=== PATIENT | male | born 1960 | race Caucasian/White ===

== ENCOUNTER 2017-01-02 10:43 | Inpatient (IN) | payer BC ==
--- NOTE | 2017-01-02 11:28 | ED ---
Skin/Abscess/FB HPI - General Source: patient, RN notes reviewed Mode of arrival: ambulatory Limitations: no limitations <David Moreno - Last Filed: 01/02/17 13:32> <Fabien Camara - Last Filed: 01/03/17 11:02> - General Chief complaint: Skin/Abscess/Foreign Body Stated complaint: RT BIG TOE SORE Time Seen by Provider: 01/02/17 11:02 - History of Present Illness Initial comments: 56-year-old male presents emergency Department chief complaint right foot infection, sores. Patient states that 2 days ago he noticed swelling in a blister to his right foot first toe. Patient states he now is a large blistered area on the lateral portion of his right foot and the distal aspect. Patient states that one year ago he had osteomyelitis from a similar sore. Patient states he is diabetic and has no sensation of his toes secondary to neuropathy. Patient states he has been working more and has been wearing his work boots more. Patient states he are not new or old work boots. He states they have been seen once. Patient trauma to his foot. (David Moreno) - Related Data Home Medications Medication Instructions Recorded Confirmed Lisinopril [Zestril] 10 mg PO DAILY 03/17/14 01/02/17 Levothyroxine Sodium [Synthroid] 25 mcg PO DAILY 12/05/15 01/02/17 sitaGLIPtin PHOS/metFORMIN HCL 1 tab PO AC-BRKFST 12/05/15 01/02/17 [Janumet 50-500 mg Tablet] Multivitamins, Thera [Multivitamin 1 tab PO DAILY 01/10/16 01/02/17 (formulary)] Insulin Glargine,Hum.rec.anlog 40 unit SQ HS 01/02/17 01/02/17 [Basaglar Kwikpen U-100] Allergies Allergy/AdvReac Type Severity Reaction Status Date / Time ketorolac tromethamine Allergy Severe Swelling Verified 01/02/17 11:21 [From Toradol] Penicillins Allergy Severe Anaphylaxis Verified 01/02/17 11:21 Review of Systems ROS Other: All systems not noted in ROS Statement are negative. <David Moreno - Last Filed: 01/02/17 13:32> ROS Other: All systems not noted in ROS Statement are negative. <Fabien Camara Barbara - Last Filed: 01/03/17 11:02> ROS Statement: Those systems with pertinent positive or pertinent negative responses have been documented in the HPI. Past Medical History Past Medical History: Diabetes Mellitus, Eye Disorder, Hypertension, Myocardial Infarction ([place]), Thyroid Disorder Additional Past Medical History / Comment(s): IDDM type 2, diabetic neuropathy bilateral feet, diverticulosis, obstructive sleep apnea has CPAP but does not use it, hypothyroid, PVD, astigmatism bilaterally, R eye retinal hemorrhage, bakc pain since a fall.. 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 Past Psychological History: No Psychological Hx Reported Smoking Status: Current every day smoker - Past Family History Mother Family Medical History: Diabetes Mellitus, Hypertension Additional Family Medical History / Comment(s): Mother in her 70's Father Family Medical History: Hypertension, Renal Disease Additional Family Medical History / Comment(s): Father at the age of 71 yrs from renal failure. <David Moreno M - Last Filed: 01/02/17 13:32> General Exam General appearance: alert, in no apparent distress Head exam: Present: atraumatic, normocephalic, normal inspection Respiratory exam: Present: normal lung sounds bilaterally. Absent: respiratory distress, wheezes, rales, rhonchi, stridor Cardiovascular Exam: Present: regular rate, normal rhythm, normal heart sounds. Absent: systolic murmur, diastolic murmur, rubs, gallop, clicks Extremities exam: Present: other (right foot first digit there is a large area of blistering slight black to yellowish discoloration on with large purulent type blister to the right lateral foot just proximal to the fifth digit) Neurological exam: Present: alert, oriented X3, CN II-XII intact, reflexes normal. Absent: motor sensory deficit Skin exam: Present: warm, dry, intact, normal color. Absent: rash <David Moreno M - Last Filed: 01/02/17 13:32> Medical Decision Making - Lab Data Result diagrams: 01/02/17 11:20 01/02/17 11:20 <David Moreno - Last Filed: 01/02/17 13:32> - Lab Data Result diagrams: 01/02/17 11:20 01/03/17 06:30 <Fabien Camara - Last Filed: 01/03/17 11:02> - Medical Decision Making 57-year-old male presented with blister to the right great toe. Patient has history of osteomyelitis in his right great toe approximately one year ago. He does have a history of diabetes. He also while in the emergency department noticed some increased swelling and blistering over his fifth toe. Right lower extremity shows chronic changes with some overlying erythema. Patient is admitted to internal medicine for IV antibiotics, infectious disease will be consulted. Diagnosis: Right foot ulcer, right lower show any cellulitis and soft tissue infection (Fabien Camara) - Lab Data Lab Results 01/02/17 01/02/17 01/02/17 Range/Units 11:20 11:20 11:20 WBC 7.3 (3.8-10.6) k/uL RBC 4.68 (4.30-5.90) m/uL Hgb 14.5 (13.0-17.5) gm/dL Hct 41.0 (39.0-53.0) % MCV 87.6 (80.0-100.0) fL MCH 30.9 (25.0-35.0) pg MCHC 35.3 (31.0-37.0) g/dL RDW 14.0 (11.5-15.5) % Plt Count 145 L (150-450) k/uL Neutrophils % 65 % Lymphocytes % 26 % Monocytes % 6 % Eosinophils % 2 % Basophils % 1 % Neutrophils # 4.8 (1.3-7.7) k/uL Lymphocytes # 1.9 (1.0-4.8) k/uL Monocytes # 0.4 (0-1.0) k/uL Eosinophils # 0.1 (0-0.7) k/uL Basophils # 0.0 (0-0.2) k/uL ESR 39 H (0-15) mm/hr Sodium 137 (137-145) mmol/L Potassium 5.8 H (3.5-5.1) mmol/L Chloride 107 (98-107) mmol/L Carbon Dioxide 22 (22-30) mmol/L Anion Gap 8 mmol/L BUN 18 (9-20) mg/dL Creatinine 0.80 (0.66-1.25) mg/dL Est GFR (MDRD) Af Amer >60 (>60 ml/min/1.73 sqM) Est GFR (MDRD) Non-Af >60 (>60 ml/min/1.73 sqM) Glucose 217 H (74-99) mg/dL Estimated Ave Glu mg/dL mg/dL Hemoglobin A1c (4.2-6.1) % Plasma Lactic Acid Tone 1.2 (0.7-2.0) mmol/L Calcium 9.0 (8.4-10.2) mg/dL C-Reactive Protein 19.7 H (<10.0) mg/L 01/02/17 Range/Units 11:20 WBC (3.8-10.6) k/uL RBC (4.30-5.90) m/uL Hgb (13.0-17.5) gm/dL Hct (39.0-53.0) % MCV (80.0-100.0) fL MCH (25.0-35.0) pg MCHC (31.0-37.0) g/dL RDW (11.5-15.5) % Plt Count (150-450) k/uL Neutrophils % % Lymphocytes % % Monocytes % % Eosinophils % % Basophils % % Neutrophils # (1.3-7.7) k/uL Lymphocytes # (1.0-4.8) k/uL Monocytes # (0-1.0) k/uL Eosinophils # (0-0.7) k/uL Basophils # (0-0.2) k/uL ESR (0-15) mm/hr Sodium (137-145) mmol/L Potassium (3.5-5.1) mmol/L Chloride (98-107) mmol/L Carbon Dioxide (22-30) mmol/L Anion Gap mmol/L BUN (9-20) mg/dL Creatinine (0.66-1.25) mg/dL Est GFR (MDRD) Af Amer (>60 ml/min/1.73 sqM) Est GFR (MDRD) Non-Af (>60 ml/min/1.73 sqM) Glucose (74-99) mg/dL Estimated Ave Glu mg/dL 252 mg/dL Hemoglobin A1c 10.4 H (4.2-6.1) % Plasma Lactic Acid Tone (0.7-2.0) mmol/L Calcium (8.4-10.2) mg/dL C-Reactive Protein (<10.0) mg/L Disposition <David Moreno - Last Filed: 01/02/17 13:32> <Fabien Camara - Last Filed: 01/03/17 11:02> Clinical Impression: Diabetic foot infection, Cellulitis of right leg Disposition: ADMITTED IP TO THIS HOSP Condition: Fair
[2017-01-02 11:38] LABS: Basophils % (A) 1 %; CH 30.2; CHCM 34.6; Eosinophils # (A) 0.1 k/uL (0-0.7); Eosinophils % (A) 2 %; HDW 3.28; HGB 14.5 gm/dL (13.0-17.5); Luc # (Auto) 0.11; Luc % (Auto) 2; Lymphocytes # (A) 1.9 k/uL (1.0-4.8); Lymphocytes % (A) 26 %; MCH 30.9 pg (25.0-35.0); MCHC 35.3 g/dL (31.0-37.0); MCV 87.6 fL (80.0-100.0); Mean Platelet Volume 7.4; Monocytes # (A) 0.4 k/uL (0-1.0); Monocytes % (A) 6 %; Neutrophils # (A) 4.8 k/uL (1.3-7.7); Neutrophils % (A) 65 %; RBC 4.68 m/uL (4.30-5.90); WBC 7.3 k/uL (3.8-10.6); WBC (Perox) 7.32
--- NOTE | 2017-01-02 11:46 | XR ---
EXAMINATION TYPE: XR foot complete RT DATE OF EXAM: 01/02/2017 COMPARISON: 04/20/2016 HISTORY: Pain TECHNIQUE: Three-view right foot FINDINGS: No acute fractures are evident. Spurs on the fifth metatarsal. Fifth digit may be hammertoe . Large plantar and Achilles tendon calcaneal heel spurs are present. IMPRESSION: 1. No acute osseous abnormality. Follow-up exams can be performed 7-10 days from acute trauma for co ntinued pain. 2. Calcaneal heel spurs. 3. Exam is stable from 04/20/2016
[2017-01-02 11:48] LABS: Anion Gap 8 mmol/L; Blood Urea Nitrogen 18 mg/dL (9-20); C Reactive Protein 19.7 mg/L (<10.0); Carbon Dioxide 22 mmol/L (22-30); Chloride 107 mmol/L (98-107); Glucose 217 mg/dL (74-99); Non-African American GFR(MDRD) >60 (>60 ml/min/1.73 sqM); Potassium 5.8 mmol/L (3.5-5.1); Sodium 137 mmol/L (137-145)
[2017-01-02] MEDS ORDERED: IBUPROFEN 600 MG TAB PO STA (11:56)
[2017-01-02 12:53] LABS: Erythrocyte Sedimentation Rate 39 mm/hr (0-15)
[2017-01-02] MEDS ORDERED: IV VANCOMYCIN PER PHARMACY 1 EACH MISC MISCELLANE PRN (13:32)
[2017-01-02] MEDS ORDERED: NALOXONE 0.4 MG/ML 1 ML VIAL IV PRN (13:33)
[2017-01-02] MEDS ORDERED: VANCOMYCIN 2,000 MG in SODIUM CHLORIDE 0.9% 500 ML IVPB ONE (14:00)
--- NOTE | 2017-01-02 16:42 | P.GSCN ---
History of Present Illness History of present illness: 56-year-old diabetic male, patient came to the emergency room with a blister formation right foot big toe and lateral aspect of the base of the fifth toe his been wearing a walking shoes he had similar problems last year involving the right foot big toe for that he had a wound debridement and long-term hepatic Medical history history of diabetes, history of hypertension, history of coronary disease, Personal history ALLERGY to penicillin and and Toradol Neck examination neck is supple no bruit appreciated Chest clear first and second sound normal Abdomen soft nontender Vascular examination femorals are palpable dorsal pedis palpable patient has a blister on the lateral aspect of the right foot and patient also has a callus formation with blister formation noted in the base of the big toe Plan is a I&D and debridement of the right foot risk and complication discussed Past Medical History Past Medical History: Diabetes Mellitus, Eye Disorder, Hypertension, Myocardial Infarction ([place]), Thyroid Disorder Additional Past Medical History / Comment(s): IDDM type 2, diabetic neuropathy bilateral feet, diverticulosis, obstructive sleep apnea has CPAP but does not use it, hypothyroid, PVD, astigmatism bilaterally, R eye retinal hemorrhage, back pain since a fall."IN MAY 2016 HAD ECOLI IN URINE",pastg rt foot diabetic wound. 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 Medications and Allergies Home Medications Medication Instructions Recorded Confirmed Type Lisinopril [Zestril] 10 mg PO DAILY 03/17/14 01/02/17 History Levothyroxine Sodium [Synthroid] 25 mcg PO DAILY 12/05/15 01/02/17 History sitaGLIPtin PHOS/metFORMIN HCL 1 tab PO AC-BRKFST 12/05/15 01/02/17 History [Janumet 50-500 mg Tablet] Multivitamins, Thera [Multivitamin 1 tab PO DAILY 01/10/16 01/02/17 History (formulary)] Insulin Glargine,Hum.rec.anlog 40 unit SQ HS 01/02/17 01/02/17 History [Basaglar Kwikpen U-100] Allergies Allergy/AdvReac Type Severity Reaction Status Date / Time ketorolac tromethamine Allergy Severe Swelling Verified 01/02/17 11:21 [From Toradol] Penicillins Allergy Severe Anaphylaxis Verified 01/02/17 11:21 Surgical - Exam Vital Signs Temp Pulse Resp BP Pulse Ox 97.5 F L 76 18 138/79 97 01/02/17 10:52 01/02/17 10:52 01/02/17 10:52 01/02/17 10:52 01/02/17 10:52 Results - Labs 01/02/17 11:20 01/02/17 11:20 Abnormal Lab Results - Last 24 Hours (Table) 01/02/17 01/02/17 Range/Units 11:20 11:20 Plt Count 145 L (150-450) k/uL ESR 39 H (0-15) mm/hr Potassium 5.8 H (3.5-5.1) mmol/L Glucose 217 H (74-99) mg/dL C-Reactive Protein 19.7 H (<10.0) mg/L Diabetes panel 01/02/17 Range/Units 11:20 Sodium 137 (137-145) mmol/L Potassium 5.8 H (3.5-5.1) mmol/L Chloride 107 (98-107) mmol/L Carbon Dioxide 22 (22-30) mmol/L BUN 18 (9-20) mg/dL Creatinine 0.80 (0.66-1.25) mg/dL Glucose 217 H (74-99) mg/dL Calcium 9.0 (8.4-10.2) mg/dL Calcium panel 01/02/17 Range/Units 11:20 Calcium 9.0 (8.4-10.2) mg/dL Pituitary panel 01/02/17 Range/Units 11:20 Sodium 137 (137-145) mmol/L Potassium 5.8 H (3.5-5.1) mmol/L Chloride 107 (98-107) mmol/L Carbon Dioxide 22 (22-30) mmol/L BUN 18 (9-20) mg/dL Creatinine 0.80 (0.66-1.25) mg/dL Glucose 217 H (74-99) mg/dL Calcium 9.0 (8.4-10.2) mg/dL Adrenal panel 01/02/17 Range/Units 11:20 Sodium 137 (137-145) mmol/L Potassium 5.8 H (3.5-5.1) mmol/L Chloride 107 (98-107) mmol/L Carbon Dioxide 22 (22-30) mmol/L BUN 18 (9-20) mg/dL Creatinine 0.80 (0.66-1.25) mg/dL Glucose 217 H (74-99) mg/dL Calcium 9.0 (8.4-10.2) mg/dL
[2017-01-02 17:06] LABS: Glucose,Whole Blood 211 mg/dL (75-99)
[2017-01-02] MEDS: INSULIN LISPRO (humaLOG) 300 UNIT/3 ML VIAL SQ SCH ×2 (17:56→20:51)
[2017-01-02] MEDS ORDERED: SODIUM POLYSTYRENE SULFONATE 15 GM/60 ML BOTTLE PO STA (19:45)
[2017-01-02 20:47] LABS: Glucose,Whole Blood 167 mg/dL (75-99)
[2017-01-02] MEDS: NICOTINE 14MG/24HR PATCH TRANSDERM SCH (20:52)
--- NOTE | 2017-01-02 21:39 | CONS ---
DATE OF CONSULTATION: 01/02/2017 REASON FOR CONSULTATION: Right diabetic foot infection. HISTORY OF PRESENT ILLNESS: The patient is a 56-year-old male with past medical history significant for right diabetic foot infection, osteomyelitis. The patient presenting to the ER with chief complaints of right foot blister. The patient initially started having a blister on the medial aspect of his right big toe that he has had for a couple of days now. The patient said that the blister becomes more darker in color and he had some surrounding swelling. The patient also developed a blister on the plantar aspect at the base of his fifth toe. The patient did have diabetes with neuropathy, hence denies significant pain in that area. The patient did mention he had some associated swelling and redness in the leg. With these symptoms, the patient did present to the [facility] ER and the patient has been evaluated by the ER physician. The patient did have x-rays of the foot which did show no acute osseous abnormality. The patient was started on Vancomycin and admitted ( ) and I was asked to see the patient for further recommendation regarding antibiotic therapy. REVIEW OF SYSTEMS: Constitutional: Positive for weakness. No fever has been recorded. EYES: No complaint. HEENT: No complaint. Respiratory: No complaint. Cardiovascular: No complaint. : No complaint. Gastrointestinal: No complaint. Musculoskeletal: As per history of present illness. Integumentary: As per history of present illness. Psychological: No complaint. Endocrine: No complaint. Neurological: No complaint. Past medical history of diabetes mellitus, hypertension. CO. Hypothyroidism, diabetic neuropathy, previous history of a diverticulosis, astigmatism, DVT, and osteomyelitis. Past surgical history: Heart catheterization. Excisional benign tumor on the left side of his skull. SOCIAL HISTORY: The patient is a current every day smoker. Denies drinking or drug use. FAMILY HISTORY: Mother with diabetes and hypertension. Father with history of hypertension and renal disease. ALLERGIES: PENICILLIN AND KETOROLAC. Medications include the patient is currently on Tylenol, [place], Humalog, Synthroid, Zestril, Glucophage, Vancomycin pharmacy to dose. Narcan. On examination, blood pressure is 141/70 with a pulse of 72. Temperature 97.5. He is 98% on room air. General description is a middle age male lying in bed in no distress. No tachypnea or accessory muscles of respiration use. HEENT: Examination shows no pallor and no sclera icterus. Oral mucosa membranes dry. NECK: Trachea is central. No thyromegaly. LUNGS: Unlabored breathing. Clear to auscultation anteriorly. HEART: S1, S2 regular rate and rhythm. ABDOMEN: Soft. No tenderness. EXTREMITIES: Some swelling, especially right leg with minimal redness. The patient did have a blister on the plantar aspect of his right foot at the base of the fifth metatarsal and middle aspect of the right big toe with some fluid, no significant surrounding redness or any drainage. NEUROLOGICALLY: The patient is awake, alert and oriented times three. Mood and affect normal. LABS: Hemoglobin 14.5, white count 7.3, ( ) count is 145 with BUN 18, creatinine 0.80. Sed rate elevated at 39. ( ). DIAGNOSTIC IMPRESSION AND PLAN: The patient with right diabetic foot infection. The patient did have blisters times two at the base of the fifth toe as well as medial aspect of the right big toe. The patient with previous history of osteomyelitis, cultures previously has been MSSA with question of ( ) or a different pathogen. PLAN: 1. Blood culture has been obtained. 2. Would recommend obtaining a vascular surgery evaluation. Dr. Nieves has seen the patient in the past. 3. Debridement of these blisters and sending cultures that will guide further antibiotic therapy. 4. The patient will continue Vancomycin for now until cultures finalized.( ) antibiotics. Thank you for this consultation. We will follow this patient along with you. BROOK
[2017-01-02] MEDS: VANCOMYCIN 2,000 MG in SODIUM CHLORIDE 0.9% 500 ML IVPB SCH (22:42)
[2017-01-03] MEDS: LEVOTHYROXINE 25 MCG TAB PO SCH (06:15)
[2017-01-03 07:14] LABS: Anion Gap 6 mmol/L; Blood Urea Nitrogen 16 mg/dL (9-20); Calcium 8.7 mg/dL (8.4-10.2); Carbon Dioxide 23 mmol/L (22-30); Chloride 108 mmol/L (98-107); Cholesterol 171 mg/dL (<200); Glucose 184 mg/dL (74-99); HDL Cholesterol 35 mg/dL (40-60); Non-African American GFR(MDRD) >60 (>60 ml/min/1.73 sqM); Potassium 4.6 mmol/L (3.5-5.1); Sodium 137 mmol/L (137-145)
[2017-01-03] MEDS ORDERED: metFORMIN 500 MG TAB PO SCH (07:30)
[2017-01-03 07:44] LABS: Glucose,Whole Blood 176 mg/dL (75-99)
[2017-01-03] MEDS: INSULIN LISPRO (humaLOG) 300 UNIT/3 ML VIAL SQ SCH ×7 (07:48→20:58)
[2017-01-03] MEDS: TIOTROPIUM 18 MCG/PUFF INHALER INHALATION SCH (08:57)
[2017-01-03] MEDS ORDERED: LISINOPRIL 10 MG TAB PO SCH (09:00)
[2017-01-03 09:13] LABS: Hemoglobin A1C 10.4 % (4.2-6.1)
[2017-01-03] MEDS ORDERED: IV FLUID CONTINUATION 1,000 ML IV ONE (10:22)
[2017-01-03] MEDS ORDERED: MIDAZOLAM 2 MG/2 ML VIAL ONE (10:22)
[2017-01-03] MEDS ORDERED: fentaNYL (PF) 50 MCG/ML 2 ML AMP ONE (10:22)
[2017-01-03] MEDS ORDERED: LIDOCAINE 2% INJ 20 MG/ML SQ ONE ×2 (10:28)
--- NOTE | 2017-01-03 10:45 | HP ---
DATE OF ADMISSION: 01/02/17 PRESENTING COMPLAINT: Ulcer on the foot. HISTORY OF PRESENTING COMPLAINT: This is a very pleasant 56-year-old patient of Dr. Santiago. The patients chronic stable medical conditions include diabetes mellitus, Type 2, hypertension, hypothyroidism. The patient also has peripheral neuropathy, diverticulosis, sleep apnea, does not use CPAP, peripheral artery disease and is a smoker. The patient for a week noticed a blister around the ball of the right big toe and also blister around the ball of the left big toe more on the plantar aspect, also blister on the cook of the right leg. The patient also noticed swelling in the lower extremity for about two weeks. 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 Denies any fever and chills. REVIEW OF SYSTEMS: Constitutional: Tired. HEENT: None. Respiratory: Occasional short of breath. Cardiovascular: None. Gastrointestinal: Heartburn. : None. Musculoskeletal: Aches and pains in the joints. Dermatological: As above. Hematological: None . Lymphatics: None. PSYCHIATRY : None. Neurological: Numbness and tingling in both feet. Past history of diabetes mellitus type 2, hypertension, myocardial infarction, hypothyroidism, diabetic neuropathy bilateral feet, diverticulosis, obstructive sleep apnea does not use CPAP, peripheral artery disease. Right eye retinal hemorrhage. Back pain. Past surgical history benign tumor removed from the left side of the skull in 1997 normal cardiac catheterization. SOCIAL HISTORY: Smoking for close to 45 years, half pack a day, ( ) in the past. 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 No alcohol. FAMILY HISTORY: Diabetes, hypertension. Home medications: 1. Janumet 50/100 one tablet po with breakfast. 2. Multivitamin one tablet po daily. 3. Zestril 10 mg po daily. 4. Synthroid 25 mcg po daily. 5. Lantus 40 units subcu q.h.s. ALLERGIES: TORADOL, AND PENICILLIN. On examination, Temperature 97.5. Pulse 76. Respiratory rate 18. Blood pressure 130/79. Pulse ox 97% on room air. GENERAL APPEARANCE: Well built. BMI 38.1. Sitting up not in distress. EYES: pupils equal. Conjunctivae normal. Oral cavity normal. NECK: JVD not raised. Mass not palpable. RESPIRATORY: Effort normal. LUNGS: Diminished breath sounds. CARDIOVASCULAR: First and second sounds normal. Edema present. ABDOMEN: Distended, soft. Liver and spleen not palpable. LYMPHATICS: No lymph nodes palpable in the neck and axillae. PSYCHIATRIC: Alert and oriented times three. Mood and affect normal. NEUROLOGICAL: Pupils equal. Cranial nerves grossly intact. Decreased sensation in the feet. The patient has a blister around the ball of the right big toe and the ball of the left big toe. Also some blisters on the cook. The patient has got discoloration of the skin below the cook down to the ankle and edema of both lower extremities. INVESTIGATIONS: White count 7.3, hemoglobin 14.5. Potassium 5.8. BUN 18, creatinine 0.80. ASSESSMENT: 1. The patient has wounds on both of the feet, probably from peripheral neuropathy secondary to diabetes. The patient just bought a new steel shoe, was rather broadbased. 2. Hyperkalemia. The patient is on saji inhibitors. 3. Obesity, BMI 38.1. 4. Diabetes mellitus, Type 2, chronically on insulin with peripheral neuropathy and diabetic retinopathy. 5. Essential hypertension. 6. Coronary artery disease with prior history of myocardial infarction. 7. Obstructive sleep apnea, does not use CPAP machine. 8. Hypothyroidism. 9. Peripheral artery disease. 10. Chronic nicotine dependence, the patient is a smoker. 11. Emphysema in a smoker. PLAN: The patients home medications are resumed. The patient is put on Vancomycin. Dr. Nieves from vascular surgery was consulted. He was planning to take the patient to the OR to be debrided. We will put the patient on Humalog ( ) three times a day. Counselled against smoking. Given a nicotine patch. We will also give the patient Kayexalate, stop the patients saji inhibitor. Repeat electrolytes in the morning. We will check the patient lipid profile and put the patient on Lipitor. The patient should also see a rail manager for weight loss measures. Care was discussed with the patient and several members at the bedside. Questions were answered. We will also add Spiriva one puff a day. Copy to Dr. Santiago. BROOK
[2017-01-03 12:03] LABS: Glucose,Whole Blood 165 mg/dL (75-99)
[2017-01-03] MEDS: MULTIVITAMINS, THERA 1 EACH TAB PO SCH (12:30)
[2017-01-03] MEDS: NICOTINE 14MG/24HR PATCH TRANSDERM SCH (12:30)
[2017-01-03] MEDS: LINAGLIPTIN 5 MG TABLET PO SCH (12:30)
[2017-01-03] MEDS: ASPIRIN 81 MG CHEW PO SCH (12:30)
[2017-01-03] MEDS: ATORVASTATIN 40 MG TAB PO SCH (12:30)
[2017-01-03] MEDS: ACETAMINOPHEN TAB 325 MG TAB PO PRN (12:32)
[2017-01-03] MEDS: VANCOMYCIN 2,000 MG in SODIUM CHLORIDE 0.9% 500 ML IVPB SCH ×2 (12:36→22:03)
[2017-01-03 13:26] VITALS: BMI 38.0
[2017-01-03 17:22] LABS: Glucose,Whole Blood 232 mg/dL (75-99)
--- NOTE | 2017-01-03 18:18 | P.PN ---
<Lynsey Villagomez - Last Filed: 01/03/17 19:09> Progress Note - Text Addendum: HISTORY AND PHYSICAL REPORT DATED 01/02/[address] Austin stated the blister was on the ball of the right big toe and on the left big toe. This is incorrect and was discussed directly with Dr. Austin and corrections are listed below. DATE OF SERVICE: 01/03/2017 PRESENTING COMPLAINT: Right great toe ulcer INTERVAL HISTORY: This a 56-year-old patient who resented with a blister on the ball of the right big toe and on the lateral side of the right foot by the fifth metatarsal a blister developed with blistering on the cook of the right leg. This developed about 2 weeks ago There was swelling noted to the right lower extremity for about 2 weeks. Patient is now postop day 1 from I&D debridement of the right great toe and foot. REVIEW OF SYSTEMS: Done for constitutional ,cardiovascular, GI, pulmonary, musculoskeletal with relevant findings as above. CURRENT MEDICATIONS [place], aspirin, Lipitor, Lantus, Humalog, Synthroid, transient, Glucophage, nicotine patch, Silvadene cream. PHYSICAL EXAM VITAL SIGNS: Temperature 97.9, pulse 71, respiratory rate 16, blood pressure 132/72, oxygen saturation 96% on room air. GENERAL APPEARANCE: Lying in bed, not in distress. EYES: Pupils equal. Conjunctiva normal. NECK: JVD not raised. Mass not palpable. RESPIRATORY: Respiratory effort normal. Lungs diminished auscultation. CARDIOVASCULAR: First and second sounds normal. Edema present ABDOMEN: Soft. Liver and spleen not palpable. No tenderness. No mass palpable. PSYCHIATRY: Alert and oriented x3. Mood and affect normal. NEUROLOGIC: Decreased sensation to bilateral feet, blister to the right big toe and the lateral aspect of the fifth metatarsal with some blisters noted to the right cook. Bilateral legs have discoloration of the skin below the cook to the ankle and edema of both extremities INVESTIGATIONS: Sodium 137 potassium 4.6 BUN 16 creatinine 0.86. Accu checks noted triglycerides 150, cholesterol 171, LDL cholesterol 106, HDL cholesterol 35. ASSESSMENT: -Right great toe and right fifth metatarsal wounds likely due to peripheral neuropathy secondary to diabetes and new steel toed shoes. Status post I&D of the right great toe and fifth metatarsal wound. -Hyperkalemia, resolved, patient is on Tamir inhibitors. -Obesity BMI 38.1 area -Diabetes mellitus type 2 chronically on insulin and oral hypoglycemics with peripheral neuropathy and diabetic retinopathy -Essential hypertension. -Coronary artery disease with prior history of myocardial infarction. -Obstructive sleep apnea does not use a CPAP machine. -Hypothyroidism. -Peripheral art to reveal disease. -Chronic nicotine dependence the patient is a current smoker. -Emphysema and a smoker. PLAN: Continue IV antibiotic therapy of vancomycin. Continue nicotine patch, patient was once again counseled against smoking. Lipitor initiated secondary to today' s lab values. Tamir wraps for lower extremity edema, dressing changes to the right per vascular surgery. Care discussed with the patient the bedside he is in agreement with our plan. We'll continue to follow closely MEDICAL LABORATORY SCIENTIST statement: Patient was seen and examined by nurse practitioner Lynsey Villagomez and all elements of the case discussed with attending Dr. Austin <Mihir Austin - Last Filed: 01/03/17 20:07> Progress Note - Text Attending note. Date of service-01/13/2017 This patient was seen and examined by me . I reviewed the note of my nurse practitioner, Ms. Villagomez. Discussed with her, additional findings as below. Patient had debridement of his right foot wounds. Legs the Tamir wrap. No chest pain. Breathing initiate better On examination: Right foot in a dressing, lower extremity- has Tamir wrap. Lungs-decreased breath sounds Investigations: Pleasure 4.6, LDL 106 Assessment and plan: -Right great toe and right fifth metatarsal wounds likely due to peripheral neuropathy secondary to diabetes and new steel toed shoes. Status post I&D of the right great toe and fifth metatarsal wound. -Hyperkalemia, resolved, patient is on Tamir inhibitors. -Obesity BMI 38.1 area -Diabetes mellitus type 2 chronically on insulin and oral hypoglycemics with peripheral neuropathy and diabetic retinopathy, uncontrolled -Essential hypertension. -Coronary artery disease with prior history of myocardial infarction. -Obstructive sleep apnea does not use a CPAP machine. -Hypothyroidism. -Peripheral arterial disease. -Chronic nicotine dependence the patient is a current smoker. -Emphysema in a current cigarette smoker. -Hyperlipidemia Plan: Care was discussed with the patient. Will increase patient's Humalog to 8 units with meals, but also increase the metformin 1000 mg twice a day. Lipitor was also added
[2017-01-03 20:35] LABS: Glucose,Whole Blood 263 mg/dL (75-99)
[2017-01-03] MEDS: INSULIN GLARGINE 100 UNIT/ML 10 ML VIAL SQ SCH (20:58)
[2017-01-04] MEDS: LEVOTHYROXINE 25 MCG TAB PO SCH (06:07)
[2017-01-04] MEDS: TIOTROPIUM 18 MCG/PUFF INHALER INHALATION SCH (07:23)
[2017-01-04] MEDS: metFORMIN 500 MG TAB PO SCH ×2 (07:57→18:14)
[2017-01-04] MEDS: ASPIRIN 81 MG CHEW PO SCH (07:58)
[2017-01-04] MEDS: ATORVASTATIN 40 MG TAB PO SCH (07:58)
[2017-01-04] MEDS: INSULIN LISPRO (humaLOG) 300 UNIT/3 ML VIAL SQ SCH ×7 (07:58→20:27)
[2017-01-04] MEDS: LINAGLIPTIN 5 MG TABLET PO SCH (07:58)
[2017-01-04 07:59] LABS: Glucose,Whole Blood 168 mg/dL (75-99)
[2017-01-04] MEDS: NICOTINE 14MG/24HR PATCH TRANSDERM SCH (07:59)
[2017-01-04] MEDS: ACETAMINOPHEN TAB 325 MG TAB PO PRN (07:59)
[2017-01-04 08:25] LABS: Basophils % (A) 1 %; CH 30.8; CHCM 33.8; Eosinophils # (A) 0.2 k/uL (0-0.7); Eosinophils % (A) 2 %; HCT 45.4 % (39.0-53.0); HDW 3.18; HGB 14.6 gm/dL (13.0-17.5); Luc # (Auto) 0.13; Luc % (Auto) 2; Lymphocytes # (A) 2.2 k/uL (1.0-4.8); Lymphocytes % (A) 29 %; MCH 29.4 pg (25.0-35.0); MCHC 32.2 g/dL (31.0-37.0); MCV 91.5 fL (80.0-100.0); Mean Platelet Volume 7.8; Monocytes # (A) 0.4 k/uL (0-1.0); Monocytes % (A) 5 %; Neutrophils # (A) 4.5 k/uL (1.3-7.7); Neutrophils % (A) 61 %; RBC 4.97 m/uL (4.30-5.90); RDW 14.8 % (11.5-15.5); WBC 7.4 k/uL (3.8-10.6); WBC (Perox) 7.47
[2017-01-04 08:49] LABS: Anion Gap 9 mmol/L; Blood Urea Nitrogen 19 mg/dL (9-20); Calcium 9.1 mg/dL (8.4-10.2); Carbon Dioxide 25 mmol/L (22-30); Chloride 104 mmol/L (98-107); Glucose 181 mg/dL (74-99); Non-African American GFR(MDRD) >60 (>60 ml/min/1.73 sqM); Potassium 4.8 mmol/L (3.5-5.1); Sodium 138 mmol/L (137-145)
[2017-01-04] MEDS ORDERED: VANCOMYCIN TROUGH DUE 1 EACH MISC MISCELLANE ONE (09:00)
[2017-01-04] MEDS ORDERED: VANCOMYCIN 1,750 MG in SODIUM CHLORIDE 0.9% 250 ML IVPB SCH (10:00)
[2017-01-04] MEDS: VANCOMYCIN 1,750 MG in SODIUM CHLORIDE 0.9% 250 ML IVPB SCH ×2 (10:32→22:01)
[2017-01-04 11:53] LABS: Glucose,Whole Blood 267 mg/dL (75-99)
--- NOTE | 2017-01-04 12:26 | P.PN ---
Progress Note - Text 56-year-old gentleman, patient came to the mesh 0 with history of callus formation noted on the right foot big toe and lateral aspect of the foot patient was put in and having IV antibiotic we did the wound debridement yesterday today no discharge or redness noted we will use Aquacel silver and shouldn't is under care of infectious disease patient goes home he will need a change of dressing every 48 hours and I will see him back in the wound clinic on next Thursday
[2017-01-04] MEDS: MULTIVITAMINS, THERA 1 EACH TAB PO SCH (13:12)
--- NOTE | 2017-01-04 13:59 | OP ---
PREOPERATIVE DIAGNOSIS: Infected callus, plantar aspect, right foot. Measurement is 2 x 2 cm and left foot lateral aspect of the foot measurement is 2 x 3 cm. PROCEDURE: This patient has a history of chronic callus of the left foot. He came with infected, median aspect of the right foot. OPERATION: Excision of the callus and debridement. The patient was brought to the operating room. Right foot was prepped and drapes were applied in a sterile manner. 1% lidocaine was infiltrated at the base of the big toe and lateral aspect of the foot. A circular incision was made around the callus of the big toe deep into the skin and fascia. Infected callus was removed. Took a deep culture and no active bleeding was noted. Then attention was paid to the left foot lateral aspect and elliptical incision was made deep into the skin, fat and fascia and there was some fluid collection. We took the culture separately from the lateral aspect of the foot and all the necrotic skin and fascia was excised. No active bleeding was noted. Wound was irrigated with hydroperoxide and saline and dressing was applied. Patient will go to the floor. Will continue the IV antibiotic. Patient tolerated the procedure well. Transferred to the recovery room. BROOK
--- NOTE | 2017-01-04 15:23 | PN ---
DATE OF SERVICE: 01/03/2017 REASON FOR FOLLOW UP: Right foot diabetic infection with infected blister. INTERVAL HISTORY: The patient is afebrile. The patient is status post debridement of both of the blisters on his right foot by Dr. Nieves. The depth of the diabetic infection is currently unclear as the operative report is currently pending. The patient denies any worsening pain to the right foot. Denies significant chest pain, shortness of breath, cough. No abdominal pain, no diarrhea. On examination, blood pressure 141/84 with a pulse of 78, temperature 98.2, he is 96% on room air. GENERAL DESCRIPTION: Middle-aged male lying in bed in no distress. RESPIRATORY: Unlabored breathing, clear to auscultation anteriorly. HEART: S1/S2 regular. ABDOMEN: Soft, no tenderness. Right foot is currently dressed. No drainage on the dressing. LABS: BUN 16 with a creatinine of 0.83. DIAGNOSTIC IMPRESSION: Patient with diabetic infection with infected blisters status post debridement of these blisters. We are awaiting for the culture finals. Lets keep the patient on antibiotics in the form of vancomycin at this point. adjusting it further based on the culture report. Continue supportive care. MTDD
--- NOTE | 2017-01-04 16:32 | P.PN ---
<Lynsey Villagomez - Last Filed: 01/04/17 16:32> Progress Note - Text DATE OF SERVICE: 01/04/2017 PRESENTING COMPLAINT: Right great toe ulcer INTERVAL HISTORY: This a 56-year-old patient who resented with a blister on the ball of the right big toe and on the lateral side of the right foot by the fifth metatarsal a blister developed with blistering on the cook of the right leg. This developed about 2 weeks ago There was swelling noted to the right lower extremity for about 2 weeks. Patient is now postop day 2 from I&D debridement of the right great toe and foot. 01/04/2017: Patient lying in bed, very comfortable appearing. Watching television. It 100 % of his meals. Ambulates in the room to and from the bathroom. Last BM was yesterday. Dressing changed to be done by vascular surgery. Accu-Cheks noted to be elevated will make adjustments to daily Humalog and Lantus doses. REVIEW OF SYSTEMS: Done for constitutional ,cardiovascular, GI, pulmonary, musculoskeletal with relevant findings as above. CURRENT MEDICATIONS [place], aspirin, Lipitor, Lantus, Humalog, Synthroid, transient, Glucophage, nicotine patch, Silvadene cream. PHYSICAL EXAM VITAL SIGNS: Temperature 97.5, pulse 73, respirations 17, blood pressure 126/65, oxygen saturation 96% on room air. GENERAL APPEARANCE: Lying in bed, not in distress. EYES: Pupils equal. Conjunctiva normal. NECK: JVD not raised. Mass not palpable. RESPIRATORY: Respiratory effort normal. Lungs diminished auscultation. CARDIOVASCULAR: First and second sounds normal. Edema present ABDOMEN: Soft. Liver and spleen not palpable. No tenderness. No mass palpable. PSYCHIATRY: Alert and oriented x3. Mood and affect normal. NEUROLOGIC: Decreased sensation to bilateral feet, blister to the right big toe and the lateral aspect of the fifth metatarsal with some blisters noted to the right cook, which are improving Bilateral legs have discoloration of the skin below the cook to the ankle and edema of both extremities INVESTIGATIONS: Platelet count 147 Accu-Cheks noted, labs are otherwise unremarkable Right first toe and right foot cultures pending Blood cultures 2 no growth after 48 hours ASSESSMENT: -Right great toe and right fifth metatarsal wounds likely due to peripheral neuropathy secondary to diabetes and new steel toed shoes. Status post I&D of the right great toe and fifth metatarsal wound. -Hyperkalemia, resolved, patient is on Tamir inhibitors. -Obesity BMI 38.1 area -Diabetes mellitus type 2 chronically on insulin and oral hypoglycemics with peripheral neuropathy and diabetic retinopathy, uncontrolled -Essential hypertension. -Coronary artery disease with prior history of myocardial infarction. -Obstructive sleep apnea does not use a CPAP machine. -Hypothyroidism. -Peripheral arterial disease. -Chronic nicotine dependence the patient is a current smoker. -Emphysema in a current cigarette smoker. -Hyperlipidemia PLAN: Continue IV antibiotic therapy of vancomycin. We'll await remaining culture results. Blood cultures currently negative. Patient's blood sugars have not been well controlled and Lantus was adjusted to 44 units and Humalog was adjusted to 11 units. TAMIR inhibitor, Prinivil added to patient's regimen as well. Tamir wraps for lower extremity edema, dressing changes to the right foot/ toe per vascular surgery. Care discussed with the patient the bedside he is in agreement with our plan. We'll continue to follow closely NATURAL GAS TECHNICIAN statement: Patient was seen and examined by nurse practitioner Lynsey Villagomez and all elements of the case discussed with attending Dr. Austin <Mihir Austin - Last Filed: 01/04/17 17:39> Progress Note - Text Attending note. Date of service-01/04/2017 This patient was seen and examined by me . I reviewed the note of my nurse practitioner, Ms. Villagomez. Discussed with her, additional findings as below. Right foot wound, status post I&D. Pains controlled. Lower extremity edema is gone down. Patient is concerned about the side effects of statins. Breathing stable. On examination: Right foot dressing. Edema has gone down. Lungs-decreased breath sounds and mild wheezing. Investigations: White count 7.4. Accu-Cheks 168, 267. Cultures pending Assessment and plan: Right foot wounds, status post I&D COPD Had a very lengthy talk with the patient, his is also present about respiratory effort of all the drugs that we take in general and that we have to look at the overall mortality and morbidity if we don't to the drugs versus just focusing on the side effects. Agreeable to take the medication at this point. Total time spent today was about 40 minutes with over 25 minutes of discussion
[2017-01-04 17:43] LABS: Glucose,Whole Blood 160 mg/dL (75-99)
[2017-01-04 20:43] LABS: Glucose,Whole Blood 227 mg/dL (75-99)
[2017-01-04] MEDS: INSULIN GLARGINE 100 UNIT/ML 10 ML VIAL SQ SCH (22:02)
[2017-01-05] MEDS: ACETAMINOPHEN TAB 325 MG TAB PO PRN ×2 (05:44→22:07)
[2017-01-05] MEDS: LEVOTHYROXINE 25 MCG TAB PO SCH (05:45)
[2017-01-05 07:33] LABS: Glucose,Whole Blood 177 mg/dL (75-99)
[2017-01-05] MEDS: metFORMIN 500 MG TAB PO SCH ×2 (07:38→17:37)
[2017-01-05] MEDS: LINAGLIPTIN 5 MG TABLET PO SCH (07:38)
[2017-01-05] MEDS: NICOTINE 14MG/24HR PATCH TRANSDERM SCH (07:38)
[2017-01-05] MEDS: ASPIRIN 81 MG CHEW PO SCH (07:38)
[2017-01-05] MEDS: ATORVASTATIN 40 MG TAB PO SCH (07:38)
[2017-01-05] MEDS: MULTIVITAMINS, THERA 1 EACH TAB PO SCH (07:40)
[2017-01-05] MEDS: HYDROcodone/APAP 5-325MG 1 EACH TAB PO PRN ×2 (07:40→13:10)
[2017-01-05] MEDS: INSULIN LISPRO (humaLOG) 300 UNIT/3 ML VIAL SQ SCH ×7 (07:41→22:07)
[2017-01-05 08:00] LABS: Basophils # (A) 0.1 k/uL (0-0.2); Basophils % (A) 1 %; CH 30.9; CHCM 34.1; Eosinophils # (A) 0.2 k/uL (0-0.7); Eosinophils % (A) 2 %; HCT 44.9 % (39.0-53.0); HDW 3.16; HGB 14.6 gm/dL (13.0-17.5); Luc # (Auto) 0.14; Luc % (Auto) 2; Lymphocytes # (A) 1.9 k/uL (1.0-4.8); Lymphocytes % (A) 24 %; MCH 29.6 pg (25.0-35.0); MCHC 32.4 g/dL (31.0-37.0); MCV 91.2 fL (80.0-100.0); Mean Platelet Volume 7.7; Monocytes # (A) 0.4 k/uL (0-1.0); Monocytes % (A) 5 %; Neutrophils # (A) 5.4 k/uL (1.3-7.7); Neutrophils % (A) 66 %; RBC 4.93 m/uL (4.30-5.90); RDW 14.6 % (11.5-15.5); WBC 8.1 k/uL (3.8-10.6); WBC (Perox) 7.71
[2017-01-05] MEDS: TIOTROPIUM 18 MCG/PUFF INHALER INHALATION SCH (08:12)
[2017-01-05 08:18] LABS: Anion Gap 6 mmol/L; Blood Urea Nitrogen 19 mg/dL (9-20); Carbon Dioxide 28 mmol/L (22-30); Chloride 103 mmol/L (98-107); Glucose 179 mg/dL (74-99); Non-African American GFR(MDRD) >60 (>60 ml/min/1.73 sqM); Potassium 4.4 mmol/L (3.5-5.1); Sodium 137 mmol/L (137-145)
[2017-01-05] MEDS: VANCOMYCIN 1,750 MG in SODIUM CHLORIDE 0.9% 250 ML IVPB SCH ×2 (09:55→22:30)
[2017-01-05 11:29] LABS: Glucose,Whole Blood 229 mg/dL (75-99)
[2017-01-05 16:54] LABS: Glucose,Whole Blood 172 mg/dL (75-99)
--- NOTE | 2017-01-05 17:27 | PN ---
DATE OF SERVICE: 01/04/17 REASON FOR FOLLOW UP: Right diabetic foot infection and blisters. INTERVAL HISTORY: The patient is afebrile. He is currently feeling better. Breathing comfortably. The patient denies significant pain to the right foot area, denies significant chest pain, shortness of breath, cough, no abdominal pain or diarrhea. On examination, blood pressure 183/86, pulse 79, temperature 97.9. He is 97 % on room air. General description is a middle age male lying in the bed in no distress. Respiratory system: Unlabored breathing. Clear to auscultation anteriorly. Heart: S1, S2 regular rate and rhythm. Abdomen soft, no tenderness. Right foot big toe wound looks clean with no significant surrounding swelling or redness. LABS: Hemoglobin 14.6, white count 7.4, cultures so far negative. DIAGNOSTIC IMPRESSION AND PLAN: Patient with diabetic foot, associated with bilateral blister on the right big toe and base of the right fifth toe status post debridement. So far cultures have been negative. The patient is currently on Vancomycin that will be continued. Discharge antibiotic will depend upon the culture report. Continue support care. BROOK
[2017-01-05 20:03] LABS: Glucose,Whole Blood 165 mg/dL (75-99)
[2017-01-05] MEDS ORDERED: INSULIN GLARGINE 100 UNIT/ML 10 ML VIAL SQ SCH (21:00)
[2017-01-06] MEDS: LEVOTHYROXINE 25 MCG TAB PO SCH (06:40)
[2017-01-06 07:35] LABS: Glucose,Whole Blood 142 mg/dL (75-99)
[2017-01-06] MEDS: MULTIVITAMINS, THERA 1 EACH TAB PO SCH (07:37)
[2017-01-06] MEDS: ATORVASTATIN 40 MG TAB PO SCH (07:37)
[2017-01-06] MEDS: ASPIRIN 81 MG CHEW PO SCH (07:38)
[2017-01-06] MEDS: LINAGLIPTIN 5 MG TABLET PO SCH (07:38)
[2017-01-06] MEDS: metFORMIN 500 MG TAB PO SCH ×2 (07:38→17:41)
[2017-01-06] MEDS: NICOTINE 14MG/24HR PATCH TRANSDERM SCH (07:39)
[2017-01-06] MEDS: INSULIN LISPRO (humaLOG) 300 UNIT/3 ML VIAL SQ SCH ×6 (07:39→17:41)
[2017-01-06 08:26] VITALS: RESP 18
[2017-01-06] MEDS ORDERED: VANCOMYCIN TROUGH DUE 1 EACH MISC MISCELLANE ONE (09:00)
[2017-01-06] MEDS ORDERED: LISINOPRIL 5 MG TAB PO SCH (09:00)
[2017-01-06 09:23] LABS: Anion Gap 7 mmol/L; Blood Urea Nitrogen 17 mg/dL (9-20); Carbon Dioxide 26 mmol/L (22-30); Chloride 102 mmol/L (98-107); Glucose 253 mg/dL (74-99); Non-African American GFR(MDRD) >60 (>60 ml/min/1.73 sqM); Potassium 4.5 mmol/L (3.5-5.1); Sodium 135 mmol/L (137-145)
[2017-01-06] MEDS: TIOTROPIUM 18 MCG/PUFF INHALER INHALATION SCH (09:33)
--- NOTE | 2017-01-06 09:53 | PN ---
DATE OF SERVICE: 01/05/2017 REASON FOR FOLLOW UP: Right foot infected blister. INTERVAL HISTORY: The patient this morning is feeling better overall. Pain and swelling to the right foot is currently controlled. Denies significant chest pain, shortness of breath or cough. No abdominal pain, no diarrhea. On examination, blood pressure 145/82 with a pulse of 83, temperature 98.1, he is 97% on room air. GENERAL DESCRIPTION: Middle-aged male lying in bed in no distress. RESPIRATORY: Unlabored breathing. Clear to auscultation anteriorly. HEART: S1/S2 regular. ABDOMEN: Soft, nontender. Right foot wounds look clean. Less swelling and redness. No slough tissue or surrounding erythema. LABS: Hemoglobin 14.3, white count 8.1. BUN 19, creatinine 1.02. DIAGNOSTIC IMPRESSION: Patient with a right foot blister status post debridement. Cultures so far pending. If the culture is negative, will ( ) with oral Keflex. Local wound care with Aquacel silver and outpatient follow up. BROOK
[2017-01-06] MEDS: VANCOMYCIN 1,750 MG in SODIUM CHLORIDE 0.9% 250 ML IVPB SCH (10:10)
[2017-01-06] MEDS: ACETAMINOPHEN TAB 325 MG TAB PO PRN (10:15)
[2017-01-06 11:57] LABS: Glucose,Whole Blood 182 mg/dL (75-99)
[2017-01-06 16:03] VITALS: BP 139/71; PULSE 78; TEMP 98.4
[2017-01-06 17:46] LABS: Glucose,Whole Blood 137 mg/dL (75-99)
--- NOTE | 2017-01-06 22:39 | PN ---
DATE OF SERVICE: 01/06/2017 REASON FOR FOLLOWUP: Right diabetic foot wound and possible cellulitis. INTERVAL HISTORY: The patient is afebrile. He is feeling better, breathing comfortably. Denies significant chest pain or shortness of breath or cough or any worsening pain in his wound on both sides of his right foot, 4th and 5th toes. On examination, blood pressure 138/79 with a pulse of 67, temperature 97.5. He is 97% on room air. General description is a middle-aged male lying in bed in no distress. RESPIRATORY SYSTEM: Unlabored breathing. Clear to auscultation anteriorly. HEART: S1, S2. Regular rate and rhythm. ABDOMEN: Soft. No tenderness. RIGHT FOOT WOUND: The base of the 5th toe looks clean with no slough tissue. ( ) drainage. LABS: BUN of 17 with a creatinine of 0.95. Wound culture with normal skin mayra. DIAGNOSTIC IMPRESSION AND PLAN: Patient with a right foot blister, both on the big toe and at the base of the fifth toe, status post debridement of the same. Culture negative for any MRSA. Patient will be given antibiotic in the form of Keflex 500 mg t.i.d. for about a week. Prescription was sent to the pharmacy. Continue local wound care with Aquacel Silver and outpatient followup. BROOK
--- NOTE | 2017-01-07 19:27 | P.DS ---
Providers Date of admission: 01/02/17 13:29 Expected date of discharge: 01/06/17 Attending physician: Mihir Austin Consults: 01/02/17 13:35 Consult Physician Stat Consulting Provider: Eran Johnson Consult Reason/Comments: diabetic foot wounds Do you want consulting provider notified?: Yes 01/02/17 15:16 Consult Physician Routine Consulting Provider: Suleiman Nieves Consult Reason/Comments: Right foot diabetic wounds for drainage Do you want consulting provider notified?: Yes Primary care physician: [facility] Course: Final diagnosis: -Acute Right great toe and right fifth metatarsal wounds likely due to peripheral neuropathy secondary to diabetes and new steel toed shoes. Status post I&D of the right great toe and fifth metatarsal wound. -Hyperkalemia, resolved, patient is on Tamir inhibitors. -Obesity BMI 38.1 area -Diabetes mellitus type 2 chronically on insulin and oral hypoglycemics with peripheral neuropathy and diabetic retinopathy, uncontrolled -Essential hypertension. -Coronary artery disease with prior history of myocardial infarction. -Obstructive sleep apnea does not use a CPAP machine. -Hypothyroidism. -Chronic nicotine dependence the patient is a current smoker. -Emphysema in a current cigarette smoker. -Hyperlipidemia Hospital course: This is a patient with uncontrolled diabetes smoker obese, presented with wound on the right foot both on the big toe and the small toe on the dorsal aspect. [place] to be infected callus per Dr. Park he did carry out the I&D. Final cultures came out to be negative. Diabetes being uncontrolled hence insulin adjusted. LDL came back at 106. Patient counseled against smoking. Weight loss. Patient is reluctant to take some of his medications were about side effects. What of time was spent discussing the benefits of the same and the risk balance discussion Discharge planning more than 35 minutes Consultation: Dr. Jain from infectious disease Dr. Park from vascular surgery Patient Condition at Discharge: Fair Plan - Discharge Summary New Discharge Prescriptions: New Cephalexin [Keflex] 500 mg PO Q8HR #30 cap Aspirin 81 mg PO DAILY #0 Lisinopril [Zestril] 5 mg PO DAILY #30 tab SILVER sulfADIAZINE CREAM [Silvadene Cream] 1 dose TOPICAL BID #1 package Atorvastatin Calcium [Lipitor] 20 mg PO DAILY #30 tab Insulin Glargine [Lantus] 50 unit SQ HS #1 vial INSULIN LISPRO (HumaLOG) [HumaLOG] 14 units SQ AC-TID #1 vial Ipratropium [place] [Atrovent Hfa] 2 puff INHALATION QID #1 inhaler metFORMIN HCL [Glucophage] 1,000 mg PO BID #60 tab Nicotine 14Mg/24Hr Patch [Habitrol] 1 patch TRANSDERM DAILY #14 patch Continue Levothyroxine Sodium [Synthroid] 25 mcg PO DAILY Multivitamins, Thera [Multivitamin (formulary)] 1 tab PO DAILY Discontinued Lisinopril [Zestril] 10 mg PO DAILY sitaGLIPtin PHOS/metFORMIN HCL [Janumet 50-500 mg Tablet] 1 tab PO AC-[id number] Discharge Medication List Levothyroxine Sodium [Synthroid] 25 mcg PO DAILY 12/05/15 [History] Multivitamins, Thera [Multivitamin (formulary)] 1 tab PO DAILY 01/10/16 [History ] Aspirin 81 mg PO DAILY #0 01/06/17 [Rx] Atorvastatin Calcium [Lipitor] 20 mg PO DAILY #30 tab 01/06/17 [Rx] Cephalexin [Keflex] 500 mg PO Q8HR #30 cap 01/06/17 [Rx] INSULIN LISPRO (HumaLOG) [HumaLOG] 14 units SQ AC-TID #1 vial 01/06/17 [Rx] Insulin Glargine [Lantus] 50 unit SQ HS #1 vial 01/06/17 [Rx] Ipratropium [place] [Atrovent Hfa] 2 puff INHALATION QID #1 inhaler 01/06/17 [Rx ] Lisinopril [Zestril] 5 mg PO DAILY #30 tab 01/06/17 [Rx] Nicotine 14Mg/24Hr Patch [Habitrol] 1 patch TRANSDERM DAILY #14 patch 01/06/17 [ Rx] SILVER sulfADIAZINE CREAM [Silvadene Cream] 1 dose TOPICAL BID #1 package [Rx] metFORMIN HCL [Glucophage] 1,000 mg PO BID #60 tab 01/06/17 [Rx] Follow up Appointment(s)/Referral(s): Dean Santiago MD [Primary Care Provider] - 01/13/17 11:30 am Suleiman Nieves MD [STAFF PHYSICIAN] - 1 Week ('s office is closed for the day.patient will have to call and schedule own appt;) Eran Johnson MD [STAFF PHYSICIAN] - 1 Week (office is closed now.patient will have to call and schedule own appt;) Ambulatory/Diagnostic Orders: Basic Metabolic Panel [LAB.AMB] Location: Determined By Patient Complete Blood Count w/diff [LAB.AMB] Location: Determined By Patient Patient Instructions/Handouts: Cellulitis (GEN), Diabetic Foot Ulcers (GEN) Activity/Diet/Wound Care/Special Instructions: wound care per dr. ryanne hayden [facility] hs....keep log Discharge/Stand Alone Forms: Work/School Release / Restrict Discharge Disposition: HOME SELF-CARE
--- NOTE | 2017-01-08 08:29 | PN ---
DATE OF SERVICE: 01/05/17 PRESENTING COMPLAINT: Right foot ulcer. INTERVAL HISTORY: This is a patient who presented with infected calluses on the right foot, status post debridement. Breathing is better. Tolerating his diet. Review of systems done for constitutional, cardiovascular, GI, pulmonary, dermatological with relevant findings as above. Current medications are reviewed. On examination, temperature 97.6, pulse 70, respirations 18, blood pressure 125/ 74, pulse ox 97% on room air. GENERAL APPEARANCE: Sitting up, comfortable. EYES: Pupils equal, conjunctivae normal. NECK: JVD not raised. Mass not palpable. RESPIRATORY: Effort normal. LUNGS: Decreased breath sounds. CARDIOVASCULAR: First and second sounds are normal. No edema. EXTREMITIES: Right foot in a dressing. PSYCHIATRY: Alert, oriented x3. Mood and affect normal. INVESTIGATIONS: White count 8.1, potassium 4.4, renal function normal. Accu- Cheks are noted. ASSESSMENT: 1. Right big toe and right fifth metatarsal wound likely infected calluses due to peripheral neuropathy secondary to diabetes status post irrigation and debridement. 2. Hypokalemia from PAWEL inhibitors, resolved. 3. Obesity, BMI 38.1. 4. Diabetes mellitus type 2, chronically on insulin, on oral hypoglycemic with peripheral neuropathy and diabetic retinopathy uncontrolled on presentation. 5. Essential hypertension. 6. Coronary artery disease with prior history of myocardial infarction. 7. Obstructive sleep apnea, does not use CPAP machine. 8. Hypothyroidism. 9. Peripheral arterial disease, not present, patient has good pulses. 10. Chronic nicotine dependence. The patient is a current smoker. 11. Emphysema in a current cigarette smoker. 12. Hyperlipidemia. PLAN: I had a lengthy talk with the patient in the presence of the . He is concerned about side effects of medications. It is explained to him the risks, benefits and strongly ask him to consider taking these medications. Total time spent was 40 minutes with about 25 minutes of discussion. BROOK
== END 2017-01-06 18:00 | disposition home or self-care (01) | DRG 623 ==
LOC: EC 10:43 → 5MS5E 13:29
PROVIDERS: ADMIT Hospitalist; ATTEND Hospitalist
PROC: 0JBQ0ZZ Excision of Right Foot Subcutaneous Tissue and Fascia, Open Approach (ICD-10-PCS; principal; 2017-01-03 09:00)
DX: E11.628 Type 2 diabetes mellitus with other skin complications (principal); L03.115 Cellulitis of right lower limb; L97.519 Non-pressure chronic ulcer of other part of right foot with unspecified severity; E11.42 Type 2 diabetes mellitus with diabetic polyneuropathy; E11.621 Type 2 diabetes mellitus with foot ulcer; E11.51 Type 2 diabetes mellitus with diabetic peripheral angiopathy without gangrene; E78.5 Hyperlipidemia, unspecified; E87.5 Hyperkalemia; I25.2 Old myocardial infarction; I25.10 Atherosclerotic heart disease of native coronary artery without angina pectoris; G47.33 Obstructive sleep apnea (adult) (pediatric); I10 Essential (primary) hypertension; E03.9 Hypothyroidism, unspecified; J44.9 Chronic obstructive pulmonary disease, unspecified; S90.424A Blister (nonthermal), right lesser toe(s), initial encounter; S90.821A Blister (nonthermal), right foot, initial encounter; R70.0 Elevated erythrocyte sedimentation rate; E11.65 Type 2 diabetes mellitus with hyperglycemia; L84 Corns and callosities; E11.319 Type 2 diabetes mellitus with unspecified diabetic retinopathy without macular edema; K57.90 Diverticulosis of intestine, part unspecified, without perforation or abscess without bleeding; E66.9 Obesity, unspecified; R53.83 Other fatigue; M54.9 Dorsalgia, unspecified; R60.0 Localized edema; F17.210 Nicotine dependence, cigarettes, uncomplicated; Z88.0 Allergy status to penicillin; Z83.3 Family history of diabetes mellitus; Z82.49 Family history of ischemic heart disease and other diseases of the circulatory system; Z79.4 Long term (current) use of insulin; Z79.899 Other long term (current) drug therapy; Z88.5 Allergy status to narcotic agent; Z86.69 Personal history of other diseases of the nervous system and sense organs; Z91.81 History of falling; Z87.440 Personal history of urinary (tract) infections; Z86.19 Personal history of other infectious and parasitic diseases; Z87.39 Personal history of other diseases of the musculoskeletal system and connective tissue; Z71.3 Dietary counseling and surveillance; Z71.6 Tobacco abuse counseling; Z68.38 Body mass index [BMI] 38.0-38.9, adult; Z91.19 Patient's noncompliance with other medical treatment and regimen; Z84.1 Family history of disorders of kidney and ureter; X58.XXXA Exposure to other specified factors, initial encounter
CPT/HCPCS: 36415; 80048; 80061; 80202; 83036; 83605; 85025; 85652; 86140; 87040; 87070; 87075; 87205; 94640; 99284

== ENCOUNTER 2020-07-23 11:09 | Inpatient (IN) | payer BC ==
[2020-07-23 12:33] LABS: Basophils # (A) 0.1 k/uL (0-0.2); Basophils % (A) 1 %; Eosinophils # (A) 0.2 k/uL (0-0.7); Eosinophils % (A) 3 %; HCT 44.5 % (39.0-53.0); HGB 15.2 gm/dL (13.0-17.5); Lymphocytes # (A) 2.1 k/uL (1.0-4.8); Lymphocytes % (A) 25 %; MCH 30.8 pg (25.0-35.0); MCHC 34.1 g/dL (31.0-37.0); MCV 90.2 fL (80.0-100.0); Mean Platelet Volume 7.9; Monocytes # (A) 0.4 k/uL (0-1.0); Monocytes % (A) 5 %; Neutrophils # (A) 5.6 k/uL (1.3-7.7); Neutrophils % (A) 66 %; Platelet Count 135 k/uL (150-450); RBC 4.94 m/uL (4.30-5.90); RDW 14.7 % (11.5-15.5); WBC 8.4 k/uL (3.8-10.6)
--- NOTE | 2020-07-23 12:36 | ED ---
General Adult HPI - General Chief complaint: Wound/Laceration Stated complaint: Ulcer on foot Time Seen by Provider: 07/23/20 11:24 Source: patient, RN notes reviewed Mode of arrival: ambulatory Limitations: no limitations - History of Present Illness Initial comments: This a 59-year-old male presents emergency department to complaint of a right foot wound. Patient states he noticed a blister the other day was states that has not worsened and causing some pain. Patient has known type II diabetic and states that he does have some peripheral neuropathy. Patient states that the wound is increasing in size, color. Patient states that he's had 2 prior ear infections on that foot in which she's required long treatments by [facility] including hyperbaric chamber treatment. Patient has appears or chills. Patient states his been taking all his medications as directed. - Related Data Home Medications Medication Instructions Recorded Confirmed Insulin Glargine,Hum.rec.anlog 48 unit SQ HS 07/23/20 07/23/20 [Basaglar Kwikpen U-100] SILVER sulfADIAZINE CREAM 1 applic TOPICAL BID 07/23/20 07/23/20 [Silvadene Cream] Sildenafil [Revatio] 20 mg PO QID PRN 07/23/20 07/23/20 clindamycin HCL [Cleocin] 300 mg PO Q8H 07/23/20 07/23/20 glyBURIDE [Diabeta] 5 mg PO AC-BID 07/23/20 07/23/20 sitaGLIPtin [Januvia] 100 mg PO DAILY 07/23/20 07/23/20 Allergies Allergy/AdvReac Type Severity Reaction Status Date / Time ketorolac tromethamine Allergy Severe Swelling Verified 07/23/20 12:39 [From Toradol] Penicillins Allergy Severe Anaphylaxis Verified 07/23/20 12:39 Review of Systems ROS Statement: Those systems with pertinent positive or pertinent negative responses have been documented in the HPI. ROS Other: All systems not noted in ROS Statement are negative. Past Medical History Past Medical History: Diabetes Mellitus, Eye Disorder, Hypertension, Myocardial Infarction ([place]), Thyroid Disorder Additional Past Medical History / Comment(s): IDDM type 2, diabetic neuropathy bilateral feet, diverticulosis, obstructive sleep apnea has CPAP but does not use it, hypothyroid, PVD, astigmatism bilaterally, R eye retinal hemorrhage, back pain since a fall."IN MAY 2016 HAD ECOLI IN URINE", Last Myocardial Infarction Date:: 1997 History of Any Multi-Drug Resistant Organisms: None Reported Past Surgical History: Heart Catheterization Additional Past Surgical History / Comment(s): 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 done at [facility], colonoscopy, 1997 cardiac cath-normal.picc line lt upper arm -since removed Past Anesthesia/Blood Transfusion Reactions: Previous Problems w/ Anesthesia Additional Past Anesthesia/Blood Transfusion Reaction / Comment(s): WAS AWAKE WHOLE TIME DURING LAST COLONOSCOPY Past Psychological History: No Psychological Hx Reported Smoking Status: Former smoker Past Alcohol Use History: None Reported Past Drug Use History: None Reported - Past Family History Mother Family Medical History: Diabetes Mellitus, Hypertension Additional Family Medical History / Comment(s): Mother in her 70's Father Family Medical History: Hypertension, Renal Disease Additional Family Medical History / Comment(s): Father at the age of 71 yrs from renal failure. General Exam Limitations: no limitations General appearance: alert, in no apparent distress Head exam: Present: atraumatic, normocephalic, normal inspection Eye exam: Present: normal appearance, PERRL, EOMI. Absent: scleral icterus, conjunctival injection, periorbital swelling ENT exam: Present: normal exam, normal oropharynx, mucous membranes moist Neck exam: Present: normal inspection, full ROM. Absent: tenderness, meningismus, lymphadenopathy Respiratory exam: Present: normal lung sounds bilaterally. Absent: respiratory distress, wheezes, rales, rhonchi, stridor Cardiovascular Exam: Present: regular rate, normal rhythm, normal heart sounds. Absent: systolic murmur, diastolic murmur, rubs, gallop, clicks Extremities exam: Present: other (Right lateral foot there is approximately 5 x 2 cm wound which appears to have overlapping skin from blister, purple to black central color) Neurological exam: Present: alert, oriented X3 Skin exam: Present: warm, dry, intact, normal color. Absent: rash Course Vital Signs 07/23/20 11:18 Temperature 98.5 F Pulse Rate 70 Respiratory 18 Rate Blood Pressure 173/92 O2 Sat by Pulse 99 Oximetry Medical Decision Making - Medical Decision Making 59-year-old presented for diabetic foot INFECTION. Patient has been on clindamycin. Patient's symptoms have not improved. Patient had multiple recurrent diabetic foot infections. Patient be admitted with consultation Dr. Nieves. - Lab Data Result diagrams: 07/23/20 12:10 07/23/20 12:10 Lab Results 07/23/20 07/23/20 07/23/20 Range/Units 12:10 12:10 12:10 WBC 8.4 (3.8-10.6) k/uL RBC 4.94 (4.30-5.90) m/uL Hgb 15.2 (13.0-17.5) gm/dL Hct 44.5 (39.0-53.0) % MCV 90.2 (80.0-100.0) fL MCH 30.8 (25.0-35.0) pg MCHC 34.1 (31.0-37.0) g/dL RDW 14.7 (11.5-15.5) % Plt Count 135 L (150-450) k/uL MPV 7.9 Neutrophils % 66 % Lymphocytes % 25 % Monocytes % 5 % Eosinophils % 3 % Basophils % 1 % Neutrophils # 5.6 (1.3-7.7) k/uL Lymphocytes # 2.1 (1.0-4.8) k/uL Monocytes # 0.4 (0-1.0) k/uL Eosinophils # 0.2 (0-0.7) k/uL Basophils # 0.1 (0-0.2) k/uL Sodium 132 L (137-145) mmol/L Potassium 4.4 (3.5-5.1) mmol/L Chloride 101 (98-107) mmol/L Carbon Dioxide 23 (22-30) mmol/L Anion Gap 8 mmol/L BUN 17 (9-20) mg/dL Creatinine 0.67 (0.66-1.25) mg/dL Est GFR (CKD-EPI)AfAm >90 (>60 ml/min/1.73 sqM) Est GFR (CKD-EPI)NonAf >90 (>60 ml/min/1.73 sqM) Glucose 195 H (74-99) mg/dL Plasma Lactic Acid Tone 1.2 (0.7-2.0) mmol/L Calcium 8.9 (8.4-10.2) mg/dL Total Bilirubin 0.5 (0.2-1.3) mg/dL AST 41 (17-59) U/L ALT 41 (4-49) U/L Alkaline Phosphatase 69 (38-126) U/L C-Reactive Protein 26.3 H (<10.0) mg/L Total Protein 6.9 (6.3-8.2) g/dL Albumin 3.4 L (3.5-5.0) g/dL Disposition Clinical Impression: Diabetic ulcer of right foot Disposition: ADMITTED IP TO THIS [facility] Condition: Fair Referrals: Soha Linn MD [Primary Care Provider] - 1-2 days
[2020-07-23 12:45] LABS: ALT 41 U/L (4-49); AST 41 U/L (17-59); African American GFR (CKD) >90 (>60 ml/min/1.73 sqM); Albumin 3.4 g/dL (3.5-5.0); Alkaline Phosphatase 69 U/L (38-126); Anion Gap 8 mmol/L; Blood Urea Nitrogen 17 mg/dL (9-20); C Reactive Protein 26.3 mg/L (<10.0); Calcium 8.9 mg/dL (8.4-10.2); Carbon Dioxide 23 mmol/L (22-30); Chloride 101 mmol/L (98-107); Glucose 195 mg/dL (74-99); Non-African American GFR(CKD) >90 (>60 ml/min/1.73 sqM); Potassium 4.4 mmol/L (3.5-5.1); Sodium 132 mmol/L (137-145); Total Bilirubin 0.5 mg/dL (0.2-1.3); Total Protein 6.9 g/dL (6.3-8.2)
--- NOTE | 2020-07-23 12:46 | XR ---
Right foot HISTORY: Pain and infection 3 views of the right foot correlated to prior exam 01/02/2017 Appearance is similar. There is soft tissue swelling present. Ossific density is present at the level metatarsophalangeal joint of the fifth digit. There are dense vascular calcifications present. No ev ident dislocation. Bone mineralization is stable. Degenerative change present at the first metatarsop halangeal joint, small ossific density present medially at this level. No periostitis to suggest oste omyelitis. Enthesophyte present at the insertion of the Achilles tendon, is a plantar calcaneal spur as on prior exam. Soft tissue swelling is noted over the dorsum of the foot additionally, lucency pre sent at the medial aspect of the first digit seen on prior exam is no longer seen however there is so ft tissue swelling suspected. Some spurring at the tibiotalar joint, intertarsal joints, tarsometatar rafael joints. IMPRESSION: Soft tissue swelling. Findings are otherwise similar to prior exam. Osteoarthritis. Corre late for diabetes.
[2020-07-23] MEDS ORDERED: VANCOMYCIN IV PER PHARMACY 1 EACH MISC MISCELLANE PRN (14:26)
[2020-07-23] MEDS ORDERED: CEFEPIME 2 GM in SODIUM CHLORIDE 0.9% 100 ML IVPB STA (14:28)
[2020-07-23] MEDS ORDERED: ONDANSETRON 4 MG/2 ML VIAL IVP PRN (14:29)
[2020-07-23] MEDS ORDERED: HYDROcodone/APAP 5-325MG 1 EACH TAB PO PRN (14:29)
[2020-07-23] MEDS ORDERED: VANCOMYCIN 2,000 MG in SODIUM CHLORIDE 0.9% 500 ML 500 ML IVPB STA (14:35)
--- NOTE | 2020-07-23 16:06 | P.HPIM ---
History of Present Illness H&P Date: 07/23/20 Chief Complaint: Right foot cellulitis This is a 59-year-old male with past medical history noted below significant for type 2 diabetes who presented to the emergency room with worsening cellulitis of the right foot with blistering. Patient said that his symptoms started a few days ago was seen and evaluated by primary care physician who prescribed an antibiotic with clindamycin. Patient said that he did antibiotic as prescribed but noted that the area of cellulitis is getting larger and area of blistering is getting darker and almost as black in color so he decided to come to the emergency so for further evaluation. Patient denies any fevers or chills. He is having some pain around the blister area but otherwise no drainage. No open wounds. Patient said that he was very concerned that he has problems with diabetic foot ulcers years ago for which he is seeing Dr. Nieves in the wound care clinic for prolonged period of time. Review of Systems Review of system: 14 points review of systems were obtained and were negative except to what were mentioned in the HPI. Past Medical History Past Medical History: Diabetes Mellitus, Eye Disorder, Hypertension, Myocardial Infarction ([place]), Thyroid Disorder Additional Past Medical History / Comment(s): IDDM type 2, diabetic neuropathy bilateral feet, diverticulosis, obstructive sleep apnea has CPAP but does not use it, hypothyroid, PVD, astigmatism bilaterally, R eye retinal hemorrhage, back pain since a fall."IN MAY 2016 HAD ECOLI IN URINE", Last Myocardial Infarction Date:: 1997 History of Any Multi-Drug Resistant Organisms: None Reported Past Surgical History: Heart Catheterization Additional Past Surgical History / Comment(s): 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 done at [facility] [place], colonoscopy, 1997 cardiac cath-normal.picc line lt upper arm -since removed Past Anesthesia/Blood Transfusion Reactions: Previous Problems w/ Anesthesia Additional Past Anesthesia/Blood Transfusion Reaction / Comment(s): WAS AWAKE WHOLE TIME DURING LAST COLONOSCOPY Past Psychological History: No Psychological Hx Reported Smoking Status: Former smoker Past Alcohol Use History: None Reported Past Drug Use History: None Reported - Past Family History Mother Family Medical History: Diabetes Mellitus, Hypertension Additional Family Medical History / Comment(s): Mother in her 70's Father Family Medical History: Hypertension, Renal Disease Additional Family Medical History / Comment(s): Father at the age of 71 yrs from renal failure. Medications and Allergies Home Medications Medication Instructions Recorded Confirmed Type Insulin Glargine,Hum.rec.anlog 48 unit SQ HS 07/23/20 07/23/20 History [Basaglar Kwikpen U-100] SILVER sulfADIAZINE CREAM 1 applic TOPICAL BID 07/23/20 07/23/20 History [Silvadene Cream] Sildenafil [Revatio] 20 mg PO QID PRN 07/23/20 07/23/20 History clindamycin HCL [Cleocin] 300 mg PO Q8H 07/23/20 07/23/20 History glyBURIDE [Diabeta] 5 mg PO AC-BID 07/23/20 07/23/20 History sitaGLIPtin [Januvia] 100 mg PO DAILY 07/23/20 07/23/20 History Allergies Allergy/AdvReac Type Severity Reaction Status Date / Time ketorolac tromethamine Allergy Severe Swelling Verified 07/23/20 12:39 [From Toradol] Penicillins Allergy Severe Anaphylaxis Verified 07/23/20 12:39 Physical Exam Vitals: Vital Signs Temp Pulse Resp BP Pulse Ox 07/23/20 13:23 78 16 152/97 98 07/23/20 11:18 98.5 F 70 18 173/92 99 Intake and Output 07/23/20 07/23/20 07/23/20 06:59 14:59 22:59 Other: Weight 131.088 kg General: The patient is awake and alert, in no distress Eye: there is normal conjunctiva bilaterally. Neck: The neck is supple, there is no JVD. Cardiovascular: Normal S1-S2, no S3-S4, no murmurs. Respiratory: Lungs clear to auscultation bilaterally Gastrointestinal: Abdomen is soft, nontender Musculoskeletal: There is no pedal edema. There is evidence of bilateral venous stasis dermatitis. There is an area 2x5 cm of blistering that is dark in color almost plaque with surrounding erythema that is warm to touch. Neurological:. Speech is normal. Skin: Skin is warm and dry Results CBC & Chem 7: 07/23/20 12:10 07/23/20 12:10 Labs: Abnormal Lab Results - Last 24 Hours (Table) 07/23/20 07/23/20 Range/Units 12:10 12:10 Plt Count 135 L (150-450) k/uL Sodium 132 L (137-145) mmol/L Glucose 195 H (74-99) mg/dL C-Reactive Protein 26.3 H (<10.0) mg/L Albumin 3.4 L (3.5-5.0) g/dL Assessment and Plan Assessment: This is a 59-year-old male with past medical history noted below who presented to the emergency room with right foot ulcer and cellulitis. Patient was e valuated in the ER and currently admitted to the hospital for further management of his medical problems noted below. 1. Diabetic ulcer of the right foot with surrounding cellulitis, started on broad-spectrum antibiotic with IV vancomycin and cefepime. Vascular surgery and infectious disease consulted for further evaluation, appreciate recommendations. No evidence of sepsis. X-ray of the foot showed no evidence of osteomyelitis. 2. Type 2 diabetes, continue home dose of Lantus plus sliding scale insulin. Hold oral agents. Diabetic diet. Check A1c. 3. Elevated blood pressure, may be secondary to stress. We will continue to monitor closely and consider starting treatment if persistent 4. DVT prophylaxis with subcu heparin 5. Patient is full code Today, I reviewed his medication list and lab work results. Continue gentle IV fluid hydration with normal saline at 50 mL per hour. Repeat lab work in the morning.
[2020-07-23] MEDS ORDERED: SODIUM CHLORIDE 0.9% 1,000 ML IV SCH (16:15)
[2020-07-23 16:44] LABS: Glucose,Whole Blood 162 mg/dL (75-99)
--- NOTE | 2020-07-23 17:37 | P.GSCN ---
History of Present Illness History of present illness: 59-year-old white male, patient is known to me from the past. Patient has history of 4 blister formation on the right foot lateral aspect for the last few days patient went to his family doctor patient was treated in the antibiotic and her local local wound care. Patient has been complaining of pain in the right foot lateral aspect finally he decided come to the emergency room. There is no history of trauma Neck examination neck is supple no bruit appreciated Chest is clear first and second sound normal abdomen soft Vascular femorals are palpable bilateral dorsal pedis palpable there is a blister formation which with some cellulitis noted on the lateral aspect of the right foot measurement is 6 x 5 5-1/2 cm Plan is patient will use Silvadene cream with the IV antibiotic and I eventually patient will need some debridement when it demarcates we'll follow with you Past Medical History Past Medical History: Diabetes Mellitus, Eye Disorder, Hypertension, Myocardial Infarction ([place]), Thyroid Disorder Additional Past Medical History / Comment(s): IDDM type 2, diabetic neuropathy bilateral feet, diverticulosis, obstructive sleep apnea has CPAP but does not use it, hypothyroid, PVD, astigmatism bilaterally, R eye retinal hemorrhage, back pain since a fall."IN MAY 2016 HAD ECOLI IN URINE", Last Myocardial Infarction Date:: 1997 History of Any Multi-Drug Resistant Organisms: None Reported Past Surgical History: Heart Catheterization Additional Past Surgical History / Comment(s): 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 done at [facility], colonoscopy, 1997 cardiac cath-normal.picc line lt upper arm -since removed Past Anesthesia/Blood Transfusion Reactions: Previous Problems w/ Anesthesia Additional Past Anesthesia/Blood Transfusion Reaction / Comm: WAS AWAKE WHOLE TIME DURING LAST COLONOSCOPY Past Psychological History: No Psychological Hx Reported Smoking Status: Former smoker Past Alcohol Use History: None Reported Past Drug Use History: None Reported - Past Family History Mother Family Medical History: Diabetes Mellitus, Hypertension Additional Family Medical History / Comment(s): Mother in her 70's Father Family Medical History: Hypertension, Renal Disease Additional Family Medical History / Comment(s): Father at the age of 71 yrs from renal failure. Medications and Allergies Home Medications Medication Instructions Recorded Confirmed Type Insulin Glargine,Hum.rec.anlog 48 unit SQ HS 07/23/20 07/23/20 History [Cedric Maurice U-100] SILVER sulfADIAZINE CREAM 1 applic TOPICAL BID 07/23/20 07/23/20 History [Silvadene Cream] Sildenafil [Revatio] 20 mg PO QID PRN 07/23/20 07/23/20 History clindamycin HCL [Cleocin] 300 mg PO Q8H 07/23/20 07/23/20 History glyBURIDE [Diabeta] 5 mg PO AC-BID 07/23/20 07/23/20 History sitaGLIPtin [Januvia] 100 mg PO DAILY 07/23/20 07/23/20 History Allergies Allergy/AdvReac Type Severity Reaction Status Date / Time ketorolac tromethamine Allergy Severe Swelling Verified 07/23/20 12:39 [From Toradol] Penicillins Allergy Severe Anaphylaxis Verified 07/23/20 12:39 Surgical - Exam Vital Signs Temp Pulse Resp BP Pulse Ox 98.5 F 70 18 173/92 99 07/23/20 11:18 07/23/20 11:18 07/23/20 11:18 07/23/20 11:18 07/23/20 11:18 Results - Labs 07/23/20 12:10 07/23/20 12:10 Abnormal Lab Results - Last 24 Hours (Table) 07/23/20 07/23/20 07/23/20 Range/Units 12:10 12:10 16:42 Plt Count 135 L (150-450) k/uL Sodium 132 L (137-145) mmol/L Glucose 195 H (74-99) mg/dL POC Glucose (mg/dL) 162 H (75-99) mg/dL C-Reactive Protein 26.3 H (<10.0) mg/L Albumin 3.4 L (3.5-5.0) g/dL Diabetes panel 07/23/20 Range/Units 12:10 Sodium 132 L (137-145) mmol/L Potassium 4.4 (3.5-5.1) mmol/L Chloride 101 (98-107) mmol/L Carbon Dioxide 23 (22-30) mmol/L BUN 17 (9-20) mg/dL Creatinine 0.67 (0.66-1.25) mg/dL Glucose 195 H (74-99) mg/dL Calcium 8.9 (8.4-10.2) mg/dL AST 41 (17-59) U/L ALT 41 (4-49) U/L Alkaline Phosphatase 69 (38-126) U/L Total Protein 6.9 (6.3-8.2) g/dL Albumin 3.4 L (3.5-5.0) g/dL Calcium panel 07/23/20 Range/Units 12:10 Calcium 8.9 (8.4-10.2) mg/dL Albumin 3.4 L (3.5-5.0) g/dL Pituitary panel 07/23/20 Range/Units 12:10 Sodium 132 L (137-145) mmol/L Potassium 4.4 (3.5-5.1) mmol/L Chloride 101 (98-107) mmol/L Carbon Dioxide 23 (22-30) mmol/L BUN 17 (9-20) mg/dL Creatinine 0.67 (0.66-1.25) mg/dL Glucose 195 H (74-99) mg/dL Calcium 8.9 (8.4-10.2) mg/dL Adrenal panel 07/23/20 Range/Units 12:10 Sodium 132 L (137-145) mmol/L Potassium 4.4 (3.5-5.1) mmol/L Chloride 101 (98-107) mmol/L Carbon Dioxide 23 (22-30) mmol/L BUN 17 (9-20) mg/dL Creatinine 0.67 (0.66-1.25) mg/dL Glucose 195 H (74-99) mg/dL Calcium 8.9 (8.4-10.2) mg/dL Total Bilirubin 0.5 (0.2-1.3) mg/dL AST 41 (17-59) U/L ALT 41 (4-49) U/L Alkaline Phosphatase 69 (38-126) U/L Total Protein 6.9 (6.3-8.2) g/dL Albumin 3.4 L (3.5-5.0) g/dL
[2020-07-23] MEDS: INSULIN ASPART (NovoLOG) 100 UNIT/ML VIAL SQ SCH ×2 (17:54→20:49)
[2020-07-23 20:43] LABS: Glucose,Whole Blood 249 mg/dL (75-99)
[2020-07-23] MEDS: HEPARIN SODIUM,PORCINE 5,000 UNIT/ML 1 ML VIAL SQ SCH (20:50)
[2020-07-23] MEDS: INSULIN DETEMIR (LEVEMIR) 100 UNIT/ML SYR SQ SCH (21:16)
--- NOTE | 2020-07-23 23:32 | CONS ---
CONSULTATION DATE OF SERVICE: 07/23/2020 REASON FOR CONSULTATION: Right diabetic foot infection. HISTORY OF PRESENT ILLNESS: The patient is a 59-year-old male with a past medical history significant for diabetes mellitus. Patient presenting to the ER with development of a right foot blister that he developed a few days ago. Before presentation to the hospital, the patient did not recall using any new shoes or any trauma to it. The patient did have diabetic neuropathy; however, he did have some discomfort especially to the lateral side of his foot, describing it to be more of a dull aching to sharp pain 4/10 and no radiation. The patient denies high-grade fever or chills. No nausea. No vomiting. No abdominal pain or diarrhea. On presentation to the hospital the patient was afebrile. The patient did have a normal white count. Kidney function was normal. CRP was 26.3. Dawn PCR was negative. The patient did have x-rays of the foot that show soft tissue swelling, no other abnormality. The patient was started on cefepime and vancomycin. He was admitted to the hospital. Infectious Disease was consulted for further management of antibiotic therapy. REVIEW OF SYSTEMS: Positive points have been mentioned in the HPI. Rest of the systems are negative. PAST MEDICAL HISTORY: Diabetes mellitus, hypertension, [place], hypothyroidism, diabetic neuropathy, diverticulosis. PAST SURGICAL HISTORY: Heart catheterization, incisional pain at the site of his skull. SOCIAL HISTORY: Remote history of smoking. No drinking or drug use. FAMILY HISTORY: Mother with history of diabetes and hypertension. Father with history of hypertension and renal disease. ALLERGIES: PENICILLIN. MEDICATIONS: The patient is currently on Tylenol, [place], cefepime 1 gram q. . He is on heparin, NovoLog, Levemir, Zofran, vancomycin, Pharmacy to dose. PHYSICAL EXAMINATION: Blood pressure 162/83 with a pulse of 60, temperature 98.3. He is 94% on room air. General description is a middle-aged male lying in bed in no distress. RESPIRATORY SYSTEM: Unlabored breathing. Clear to auscultation anteriorly. HEART: S1, S2. Regular rate and rhythm. ABDOMEN: Soft. No tenderness. No guarding or rigidity. EXTREMITIES: No edema of the feet. Examination of right foot: Lateral border did have a pustule, slightly warm to touch. No drainage noted on the dressing. Neurologically the patient is awake, alert, oriented x3. Mood and affect normal. LABS: Hemoglobin is 15.2, white count 8.4, BUN of 17, creatinine 0.67. CRP 26.3. X-rays with soft tissue swelling. No bony destruction. DIAGNOSTIC IMPRESSION AND PLAN: Patient admitted to hospital with right diabetic food infection in this patient who did have a right foot pustule, questionably related to any trauma or tight-fitting shoes. Will need to cover for the Gram-positive as well as Gram-negative pathogens associated with these types of infection in this patient with underlying diabetes mellitus. PLAN: 1. Patient may benefit from pustule and deep cultures. 2. Vancomycin, Pharmacy to dose. Start while watching his kidney function closely. Cefepime to provide broader antibiotic coverage. 3. Will follow clinical condition and culture to further adjust medication if needed. Thank you for this consultation. Will follow this patient along with you. MMODL / IJN: [id number] /
[2020-07-23] MEDS: CEFEPIME 1 GM in SODIUM CHLORIDE 0.9% 50 ML IVPB SCH (23:52)
[2020-07-24] MEDS: VANCOMYCIN 2,000 MG in SODIUM CHLORIDE 0.9% 500 ML 500 ML IVPB SCH ×2 (04:19→16:51)
[2020-07-24 07:17] LABS: Glucose,Whole Blood 174 mg/dL (75-99)
[2020-07-24 07:45] LABS: African American GFR (CKD) >90 (>60 ml/min/1.73 sqM); Anion Gap 5 mmol/L; Blood Urea Nitrogen 17 mg/dL (9-20); Calcium 8.9 mg/dL (8.4-10.2); Carbon Dioxide 29 mmol/L (22-30); Chloride 101 mmol/L (98-107); Glucose 165 mg/dL (74-99); Non-African American GFR(CKD) >90 (>60 ml/min/1.73 sqM); Potassium 4.4 mmol/L (3.5-5.1); Sodium 135 mmol/L (137-145)
[2020-07-24] MEDS: CEFEPIME 1 GM in SODIUM CHLORIDE 0.9% 50 ML IVPB SCH ×2 (07:49→20:46)
[2020-07-24] MEDS: HEPARIN SODIUM,PORCINE 5,000 UNIT/ML 1 ML VIAL SQ SCH ×3 (08:55→20:19)
[2020-07-24] MEDS: INSULIN ASPART (NovoLOG) 100 UNIT/ML VIAL SQ SCH ×6 (08:56→20:45)
[2020-07-24 12:47] LABS: Glucose,Whole Blood 198 mg/dL (75-99)
--- NOTE | 2020-07-24 13:00 | P.PN ---
Subjective Progress Note Date: 07/24/20 Patient is awake and alert today. No acute events overnight. Objective - Vital Signs Vital signs: Vital Signs Temp 97.8 F 07/24/20 07:50 Pulse 70 07/24/20 07:50 Resp 18 07/24/20 07:50 BP 142/85 07/24/20 07:50 Pulse Ox 97 07/24/20 07:50 Intake & Output 07/23/20 07/24/20 07/24/20 18:59 06:59 18:59 Intake Total 1390 Output Total 650 Balance 740 Weight 131.088 kg Intake: Intake, IV Titration 790 Amount Cefepime 1 gm In Sodium 50 Chloride 0.9% 50 ml @ 12. 5 mls/hr IVPB Q12HR [facility] Rx#:[id number] Sodium Chloride 0.9% 1, 240 000 ml @ 50 mls/hr IV . Q20H [facility] Rx#:[id number] Vancomycin 2,000 mg In 500 Sodium Chloride 0.9% 500 ml 500 ml @ 167 mls/hr IVPB Q12H [facility] Rx#: [id number] Oral 600 Output: Urine 650 - Exam General: The patient is awake and alert, in no distress Eye: there is normal conjunctiva bilaterally. Neck: The neck is supple, there is no JVD. Cardiovascular: Normal S1-S2, no S3-S4, no murmurs. Respiratory: Lungs clear to auscultation bilaterally Gastrointestinal: Abdomen is soft, nontender Musculoskeletal: There is venous stasis dermatitis bilaterally. Right foot wrapped with clean/dry dressing Neurological:. Speech is normal. Skin: Skin is warm and dry - Labs CBC & Chem 7: 07/23/20 12:10 07/24/20 06:29 Labs: Abnormal Lab Results - Last 24 Hours (Table) 07/23/20 07/23/20 07/24/20 Range/Units 16:42 20:41 06:29 Sodium 135 L (137-145) mmol/L Glucose 165 H (74-99) mg/dL POC Glucose (mg/dL) 162 H 249 H (75-99) mg/dL 07/24/20 07/24/20 Range/Units 07:15 12:44 Sodium (137-145) mmol/L Glucose (74-99) mg/dL POC Glucose (mg/dL) 174 H 198 H (75-99) mg/dL Assessment and Plan Assessment: This is a 59-year-old male with past medical history noted below who presented to the emergency room with right foot ulcer and cellulitis. Patient was evaluated in the ER and currently admitted to the hospital for further management of his medical problems noted below. 1. Diabetic ulcer of the right foot with surrounding cellulitis, started on broad-spectrum antibiotic with IV vancomycin and cefepime. Vascular surgery and infectious disease consulted for further evaluation, appreciate recommendations. Consideration for surgical debridement in the next day or 2. No evidence of sepsis. X-ray of the foot showed no evidence of osteomyelitis. 2. Type 2 diabetes, not well controlled. A1c more than 10 per patient report. continue home dose of Lantus plus sliding scale insulin. Add NovoLog 4 units before each meal plus sliding scale. Hold oral agents. Diabetic diet. Check A1c. 3. Elevated blood pressure, persistent since admission. May represent essential hypertension. I would start lisinopril 10 mg daily and continue to monitor closely. 4. DVT prophylaxis with subcu heparin 5. Patient is full code Today, I reviewed his medication list and lab work results. Repeat lab work in the morning.
[2020-07-24 13:18] VITALS: BMI 43.9
[2020-07-24] MEDS: lisinopriL 10 MG TAB PO SCH (13:22)
[2020-07-24 17:03] LABS: Glucose,Whole Blood 206 mg/dL (75-99)
[2020-07-24 17:16] LABS: Hemoglobin A1C 10.3 % (4.0-6.0)
[2020-07-24] MEDS ORDERED: LOPERAMIDE 2 MG CAP PO PRN (19:32)
[2020-07-24 20:10] LABS: Glucose,Whole Blood 309 mg/dL (75-99)
[2020-07-24] MEDS: INSULIN DETEMIR (LEVEMIR) 100 UNIT/ML SYR SQ SCH (20:45)
--- NOTE | 2020-07-24 23:26 | PN ---
PROGRESS NOTE DATE OF SERVICE: 07/24/2020 REASON FOR FOLLOWUP: Right diabetic foot infection. INTERVAL HISTORY: The patient is currently afebrile. He is breathing comfortably. Overall pain and discomfort to the right foot wound has slightly decreased. Denies having any chest pain, shortness of breath or cough. No abdominal pain or diarrhea. PHYSICAL EXAMINATION: Blood pressure 140/74 with a pulse of 76, temperature 98.1. He is 96% on room air. General description is a middle-aged male up in the chair in no distress. RESPIRATORY SYSTEM: Unlabored breathing. Clear to auscultation anteriorly. HEART: S1, S2. Regular rate and rhythm. ABDOMEN: Soft. No tenderness. Right foot is dressed up. The patient refused to have just placed. There is no drainage on the dressing. LABS: BUN of 17, creatinine 0.88. Blood culture negative. DIAGNOSTIC IMPRESSION AND PLAN: Patient with right diabetic foot infection with a pustule to the right foot lateral border. Possible debridement in the morning per Vascular Surgery, at which time deep culture should be obtained. Continue cefepime and vancomycin at this point and monitor his clinical course closely. MMODL / IJN: [id number] /
[2020-07-25] MEDS: VANCOMYCIN 2,000 MG in SODIUM CHLORIDE 0.9% 500 ML 500 ML IVPB SCH ×2 (05:41→16:18)
[2020-07-25 07:00] LABS: Glucose,Whole Blood 229 mg/dL (75-99)
[2020-07-25] MEDS ORDERED: LIDOCAINE 1% (PF) 10 MG/ML (30 ML SDV) SQ STA (08:50)
[2020-07-25] MEDS: CEFEPIME 1 GM in SODIUM CHLORIDE 0.9% 50 ML IVPB SCH ×2 (09:29→21:32)
[2020-07-25] MEDS: INSULIN ASPART (NovoLOG) 100 UNIT/ML VIAL SQ SCH ×7 (09:29→21:32)
[2020-07-25] MEDS: HEPARIN SODIUM,PORCINE 5,000 UNIT/ML 1 ML VIAL SQ SCH ×3 (09:30→21:26)
[2020-07-25] MEDS: lisinopriL 10 MG TAB PO SCH (09:31)
[2020-07-25 09:43] LABS: African American GFR (CKD) 77.3 (60.0-200.0); Anion Gap 5.3 mmol/L (4.00-12.00); BUN/Creat Ratio 18.33 Ratio (12.00-20.00); Calcium 9.6 mg/dL (8.7-10.3); Carbon Dioxide 29.7 mmol/L (21.6-31.8); Non-African American GFR(CKD) 66.7 (60.0-200.0); Potassium 4.5 mmol/L (3.5-5.5)
[2020-07-25] MEDS ORDERED: INSULIN ASPART (NovoLOG) 100 UNIT/ML VIAL SQ SCH (10:45)
[2020-07-25] MEDS ORDERED: INSULIN ASPART (NovoLOG) 100 UNIT/ML VIAL SQ ONE (10:45)
[2020-07-25 11:22] LABS: Glucose,Whole Blood 285 mg/dL (75-99)
--- NOTE | 2020-07-25 12:15 | P.PN ---
Subjective Progress Note Date: 07/25/20 Patient is doing well today. He had debridement of the right foot this morning at bedside by vascular surgery. No acute events overnight. Objective - Vital Signs Vital signs: Vital Signs Temp 97.8 F 07/25/20 07:17 Pulse 72 07/25/20 10:16 Resp 18 07/25/20 10:16 BP 133/81 07/25/20 07:17 Pulse Ox 98 07/25/20 07:17 Intake & Output 07/24/20 07/25/20 07/25/20 18:59 06:59 18:59 Intake Total 240 550 Balance 240 550 Weight 131.088 kg Intake: Intake, IV Titration 550 Amount Cefepime 1 gm In Sodium 50 Chloride 0.9% 50 ml @ 12. 5 mls/hr IVPB Q12HR [facility] Rx#:[id number] Vancomycin 2,000 mg In 500 Sodium Chloride 0.9% 500 ml 500 ml @ 167 mls/hr IVPB Q12H [facility] Rx#: [id number] Oral 240 Other: Voiding Method Toilet # Voids 5 0 # Bowel Movements 0 - Exam General: The patient is awake and alert, in no distress Eye: there is normal conjunctiva bilaterally. Neck: The neck is supple, there is no JVD. Cardiovascular: Normal S1-S2, no S3-S4, no murmurs. Respiratory: Lungs clear to auscultation bilaterally Gastrointestinal: Abdomen is soft, nontender Musculoskeletal: There is venous stasis dermatitis bilaterally. Right foot wrapped with clean/dry dressing Neurological:. Speech is normal. Skin: Skin is warm and dry - Labs CBC & Chem 7: 07/23/20 12:10 07/25/20 04:11 Labs: Abnormal Lab Results - Last 24 Hours (Table) 07/24/20 07/24/20 07/24/20 Range/Units 06:29 12:44 16:54 Glucose (70-110) mg/dL POC Glucose (mg/dL) 198 H 206 H (75-99) mg/dL Hemoglobin A1c 10.3 H (4.0-6.0) % 07/24/20 07/25/20 07/25/20 Range/Units 20:08 04:11 06:58 Glucose 217 H (70-110) mg/dL POC Glucose (mg/dL) 309 H 229 H (75-99) mg/dL Hemoglobin A1c (4.0-6.0) % 07/25/20 Range/Units 11:21 Glucose (70-110) mg/dL POC Glucose (mg/dL) 285 H (75-99) mg/dL Hemoglobin A1c (4.0-6.0) % Microbiology - Last 24 Hours (Table) 07/23/20 12:10 Blood Culture - Preliminary Blood No Growth after 24 hours Assessment and Plan Assessment: This is a 59-year-old male with past medical history noted below who presented to the emergency room with right foot ulcer and cellulitis. Patient was evaluated in the ER and currently admitted to the hospital for further management of his medical problems noted below. 1. Diabetic ulcer of the right foot with surrounding cellulitis, started on broad-spectrum antibiotic with IV vancomycin and cefepime. Status post debridement at bedside by vascular surgery. Awaiting culture results 2. Type 2 diabetes, not well controlled. A1c 10.3 increase home dose of Lantus to 50 units at bedtime. Added NovoLog 6 units 3 times a day with meals plus sliding scale. Diabetic diet. 3. Essential hypertension, newly diagnosed during this admission. Started on lisinopril 10 mg daily. We will continue to monitor closely. 4. DVT prophylaxis with subcu heparin 5. Patient is full code Today, I reviewed his medication list and lab work results. Repeat lab work in the morning.
--- NOTE | 2020-07-25 15:03 | OP ---
DATE OF SERVICE: 07/25/2020 OPERATIVE REPORT PREOPERATIVE DIAGNOSIS: Blister formation with infected callus right foot lateral aspect. POSTOPERATIVE DIAGNOSIS: Blister formation with infected callus right foot lateral aspect. OPERATION: Debridement of the right foot callus and taken deep culture for culture and sensitivity. This patient has history of callus on the right foot lateral aspect. It got infected and formed a blister. Blister opened up and patient has some hemorrhagic spot under the skin, that area is very tender and the patient is on IV antibiotic and local wound care. Today we examined the wound. There is some drainage noted. Right foot was prepped and drapes were applied in usual sterile manner and 1% lidocaine infiltrated. Using an 11 blade, we excised the wound down to subcutaneous tissue and the fat. All the devitalized tissue was excised with sharp knife. The deep tissue was sent for culture and sensitivity. No active bleeding was noted. The bleeding points were checked one more time and wound was irrigated with saline. Aquacel Silver applied to the wound. Pressure dressing applied. Patient tolerated the procedure well. Postop debridement is 6 x 5.2 x 1 cm. PLAN: To change the dressing every 48 hours. Wait for the culture. MMODL / IJN: [id number] / BR[facility]
[2020-07-25] MEDS ORDERED: VANCOMYCIN TROUGH DUE 1 EACH MISC MISCELLANE ONE (16:00)
[2020-07-25 17:11] LABS: Glucose,Whole Blood 176 mg/dL (75-99)
[2020-07-25 20:07] LABS: Glucose,Whole Blood 207 mg/dL (75-99)
[2020-07-25] MEDS: INSULIN DETEMIR (LEVEMIR) 100 UNIT/ML SYR SQ SCH (21:33)
--- NOTE | 2020-07-25 23:19 | PN ---
PROGRESS NOTE DATE OF SERVICE: 07/25/2020 REASON FOR FOLLOWUP: Right diabetic foot infection. INTERVAL HISTORY: The patient is currently afebrile. The patient did have bedside debridement of the right diabetic foot with evidence of extensive necrosis as per discussion with the vascular surgeon. The patient denies having any chest pain, shortness of breath or cough. No abdominal pain or any worsening pain to the right foot. PHYSICAL EXAMINATION: Blood pressure 152/81 with a pulse of 82, temperature 98.7. He is 91% on room air. General description has is a middle-aged male up in the bed in no distress. RESPIRATORY SYSTEM: Unlabored breathing. Clear to auscultation anteriorly. HEART: S1, S2. Regular rate and rhythm. ABDOMEN: Soft. No tenderness. Right foot is currently dressed up. No obvious drainage on the dressing. LABS: Cultures are currently pending. DIAGNOSTIC IMPRESSION AND PLAN: Patient with right diabetic foot infection with right lateral border pustule, status post debridement with deep cultures currently pending. Patient is covered with vancomycin and cefepime, with discharge antibiotic depending upon the culture report. Continue supportive care. MMODL / IJN: [id number] /
[2020-07-26] MEDS: VANCOMYCIN 2,000 MG in SODIUM CHLORIDE 0.9% 500 ML 500 ML IVPB SCH ×2 (05:09→17:09)
[2020-07-26 07:02] LABS: Glucose,Whole Blood 180 mg/dL (75-99)
[2020-07-26] MEDS: ACETAMINOPHEN TAB 325 MG TAB PO PRN (08:04)
[2020-07-26] MEDS: CEFEPIME 1 GM in SODIUM CHLORIDE 0.9% 50 ML IVPB SCH ×2 (08:06→21:41)
[2020-07-26] MEDS: INSULIN ASPART (NovoLOG) 100 UNIT/ML VIAL SQ SCH ×8 (09:05→21:40)
[2020-07-26] MEDS: lisinopriL 10 MG TAB PO SCH (09:07)
[2020-07-26 09:49] LABS: African American GFR (CKD) 109.5 (60.0-200.0); Anion Gap 7.3 mmol/L (4.00-12.00); BUN/Creat Ratio 24.44 Ratio (12.00-20.00); Carbon Dioxide 25.7 mmol/L (21.6-31.8); Non-African American GFR(CKD) 94.5 (60.0-200.0); Potassium 4.4 mmol/L (3.5-5.5)
[2020-07-26] MEDS: HEPARIN SODIUM,PORCINE 5,000 UNIT/ML 1 ML VIAL SQ SCH ×2 (11:24→20:07)
[2020-07-26 11:46] LABS: Glucose,Whole Blood 220 mg/dL (75-99)
[2020-07-26] MEDS: LINAGLIPTIN 5 MG TABLET PO SCH (12:34)
[2020-07-26] MEDS: glipiZIDE 10 MG TAB PO SCH ×2 (12:35→17:10)
--- NOTE | 2020-07-26 12:44 | P.PN ---
Subjective Progress Note Date: 07/26/20 Patient is doing well today. Blood glucose better than yesterday. No acute events overnight. Objective - Vital Signs Vital signs: Vital Signs Temp 97.4 F L 07/26/20 05:00 Pulse 70 07/26/20 09:18 Resp 18 07/26/20 09:18 BP 137/86 07/26/20 05:00 Pulse Ox 93 L 07/26/20 05:00 Intake & Output 07/25/20 07/26/20 07/26/20 18:59 06:59 18:59 Intake Total 1090 Balance 1090 Intake: Intake, IV Titration 500 Amount Vancomycin 2,000 mg In 500 Sodium Chloride 0.9% 500 ml 500 ml @ 167 mls/hr IVPB Q12H [facility] Rx#: [id number] Oral 590 Other: Voiding Method Toilet Toilet Toilet # Voids 2 - Exam General: The patient is awake and alert, in no distress Eye: there is normal conjunctiva bilaterally. Neck: The neck is supple, there is no JVD. Cardiovascular: Normal S1-S2, no S3-S4, no murmurs. Respiratory: Lungs clear to auscultation bilaterally Gastrointestinal: Abdomen is soft, nontender Musculoskeletal: There is venous stasis dermatitis bilaterally. Right foot wrapped with clean/dry dressing Neurological:. Speech is normal. Skin: Skin is warm and dry - Labs CBC & Chem 7: 07/23/20 12:10 07/26/20 05:52 Labs: Abnormal Lab Results - Last 24 Hours (Table) 07/25/20 07/25/20 07/26/20 Range/Units 17:08 20:05 05:52 BUN/Creatinine Ratio 24.44 H (12.00-20.00) Ratio Glucose 196 H (70-110) mg/dL POC Glucose (mg/dL) 176 H 207 H (75-99) mg/dL 07/26/20 07/26/20 Range/Units 07:01 11:44 BUN/Creatinine Ratio (12.00-20.00) Ratio Glucose (70-110) mg/dL POC Glucose (mg/dL) 180 H 220 H (75-99) mg/dL Microbiology - Last 24 Hours (Table) 07/25/20 09:04 Gram Stain - Preliminary Foot - Right Tissue Culture - Preliminary 07/25/20 09:04 Gram Stain - Preliminary Foot - Right Wound Culture - Preliminary 07/25/20 09:04 Anaerobic Culture - Preliminary Foot - Right 07/23/20 12:10 Blood Culture - Preliminary Blood No Growth after 48 hours Assessment and Plan Assessment: This is a 59-year-old male with past medical history noted below who presented to the emergency room with right foot ulcer and cellulitis. Patient was evaluated in the ER and currently admitted to the hospital for further management of his medical problems noted below. 1. Diabetic ulcer of the right foot with surrounding cellulitis, started on broad-spectrum antibiotic with IV vancomycin and cefepime. Status post debridement at bedside by vascular surgery. Awaiting culture results 2. Type 2 diabetes, not well controlled. A1c 10.3 increase home dose of Lantus to 50 units at bedtime. Added NovoLog 6 units 3 times a day with meals plus sliding scale. Diabetic diet. 3. Essential hypertension, newly diagnosed during this admission. Started on lisinopril 10 mg daily. We will continue to monitor closely. 4. DVT prophylaxis with subcu heparin 5. Patient is full code Today, I reviewed his medication list and lab work results. Repeat lab work in the morning. Discharge home tomorrow
--- NOTE | 2020-07-26 15:59 | P.PN ---
Progress Note - Text 59-year-old gentleman, patient had a right foot lateral aspect debridement done and patient to the his IV antibiotic culture is pending we will continue with Aquacel silver will change every 48 hours if patient goes home we'll follow in the wound clinic on Thursday
[2020-07-26 16:37] LABS: Glucose,Whole Blood 151 mg/dL (75-99)
[2020-07-26 20:20] LABS: Glucose,Whole Blood 159 mg/dL (75-99)
[2020-07-26] MEDS: INSULIN DETEMIR (LEVEMIR) 100 UNIT/ML SYR SQ SCH (21:41)
--- NOTE | 2020-07-26 23:14 | PN ---
PROGRESS NOTE DATE OF SERVICE: 07/26/2020 REASON FOR FOLLOWUP: Right diabetic foot infection. INTERVAL HISTORY: The patient is currently afebrile. He is breathing comfortably. Denies having any chest pain, shortness of breath or cough. No abdominal pain or any worsening pain to the right foot. PHYSICAL EXAMINATION: Blood pressure 147/88 with a pulse of 71, temperature 97.9. He is 98% on room air. General description is a middle-aged male up in the chair in no distress. RESPIRATORY SYSTEM: Unlabored breathing. Clear to auscultation anteriorly. HEART: S1, S2. Regular rate and rhythm. ABDOMEN: Soft. No tenderness. Right foot is currently dressed up. No obvious drainage on the dressing. LABS: BUN of 22, creatinine 0.9. DIAGNOSTIC IMPRESSION AND PLAN: Patient with a right diabetic foot infection, status post debridement. He was noted to have extensive tissue that was debrided. Cultures are currently pending. Will re- evaluate the wound tomorrow. May need IV antibiotic on discharge. Will discuss with the foster care case manager. Continue with supportive care. MMODL / IJN: [id number] /
[2020-07-27] MEDS: VANCOMYCIN 2,000 MG in SODIUM CHLORIDE 0.9% 500 ML 500 ML IVPB SCH ×2 (05:04→16:50)
[2020-07-27 07:12] LABS: Glucose,Whole Blood 125 mg/dL (75-99)
[2020-07-27] MEDS: INSULIN ASPART (NovoLOG) 100 UNIT/ML VIAL SQ SCH ×7 (08:24→20:28)
[2020-07-27] MEDS: HEPARIN SODIUM,PORCINE 5,000 UNIT/ML 1 ML VIAL SQ SCH ×2 (08:25→20:29)
[2020-07-27] MEDS: LINAGLIPTIN 5 MG TABLET PO SCH (08:25)
[2020-07-27] MEDS: glipiZIDE 10 MG TAB PO SCH ×2 (08:25→18:49)
[2020-07-27] MEDS: lisinopriL 10 MG TAB PO SCH (08:25)
[2020-07-27] MEDS: CEFEPIME 1 GM in SODIUM CHLORIDE 0.9% 50 ML IVPB SCH ×2 (10:50→20:28)
[2020-07-27] MEDS: ACETAMINOPHEN TAB 325 MG TAB PO PRN (10:51)
[2020-07-27 11:54] LABS: Glucose,Whole Blood 210 mg/dL (75-99)
--- NOTE | 2020-07-27 12:42 | P.DS ---
Providers Date of admission: 07/23/20 14:54 Expected date of discharge: 07/27/20 Attending physician: Bj Bañuelos Consults: 07/23/20 14:29 Consult Physician Urgent Consulting Provider: Suleiman Nieves Consult Reason/Comments: Diabetic ulcer Do you want consulting provider notified?: Yes 07/23/20 15:56 Consult Physician Routine Consulting Provider: Eran Johnson Consult Reason/Comments: Diabetic ulcer Do you want consulting provider notified?: Yes Primary care physician: Soha Linn MD Hospital Course: This is a 59-year-old male with past medical history noted below who presented to the emergency room with right foot ulcer and cellulitis. Patient was evaluated in the ER and currently admitted to the hospital for further management of his medical problems noted below. 1. Diabetic ulcer of the right foot with surrounding cellulitis, started on broad-spectrum antibiotic with IV vancomycin and cefepime. Status post debridement at bedside by vascular surgery. Cultures showed no significant growth. Patient was seen and evaluated by infectious disease. Plan to finish antibiotic course with Keflex for 10 more days. 2. Type 2 diabetes, not well controlled. A1c 10.3 increase home dose of Lantus to 50 units at bedtime. Added NovoLog 6 units 3 times a day with meals plus sliding scale. Diabetic diet. 3. Essential hypertension, newly diagnosed during this admission. Started on lisinopril 10 mg daily. Blood pressure improved. Continue wound care as directed by vascular surgery. Follow-up in the office as directed with wound care and PCP. Patient Condition at Discharge: Fair Plan - Discharge Summary Discharge Rx Participant: No New Discharge Prescriptions: New Insulin Aspart [NovoLOG Flexpen] 6 units SQ AC-TID #3 pen lisinopriL [Zestril] 10 mg PO DAILY #30 tab Cephalexin [Keflex] 500 mg PO Q6HR 10 Days #40 cap Continue sitaGLIPtin [Januvia] 100 mg PO DAILY SILVER sulfADIAZINE CREAM [Silvadene Cream] 1 applic TOPICAL BID glyBURIDE [Diabeta] 5 mg PO AC-BID Changed Insulin Glargine,Hum.rec.anlog [Basaglar Kwikpen U-100] 50 unit SQ HS #0 Discontinued Sildenafil [Revatio] 20 mg PO QID PRN PRN Reason: URINARY ISSUES clindamycin HCL [Cleocin] 300 mg PO Q8H Discharge Medication List SILVER sulfADIAZINE CREAM [Silvadene Cream] 1 applic TOPICAL BID 07/23/20 [History] glyBURIDE [Diabeta] 5 mg PO AC-BID 07/23/20 [History] sitaGLIPtin [Januvia] 100 mg PO DAILY 07/23/20 [History] Cephalexin [Keflex] 500 mg PO Q6HR 10 Days #40 cap 07/27/20 [Rx] Insulin Aspart [NovoLOG Flexpen] 6 units SQ AC-TID #3 pen 07/27/20 [Rx] Insulin Glargine,Hum.rec.anlog [Basaglar Kwikpen U-100] 50 unit SQ HS #0 07/27/20 [Rx] lisinopriL [Zestril] 10 mg PO DAILY #30 tab 07/27/20 [Rx] Follow up Appointment(s)/Referral(s): Soha Linn MD [Primary Care Provider] - 1-2 days Suleiman Nieves MD [STAFF PHYSICIAN] - 1 Week Patient Instructions/Handouts: Type 2 Diabetes in Adults: New Diagnosis (DC), Diabetic Foot Ulcers (DC), Diabetes and Your Skin (DC) Discharge Disposition: HOME SELF-CARE
--- NOTE | 2020-07-27 13:50 | PN ---
PROGRESS NOTE DATE OF SERVICE: 07/27/2020 REASON FOR FOLLOWUP: Right diabetic foot infection. INTERVAL HISTORY: The patient is currently afebrile. Patient is feeling better. Breathing comfortably. No chest pain or cough. No abdominal pain. He did have a problem with his left hand IV site which off and is complaining of pain at that site. PHYSICAL EXAMINATION: Blood pressure 134/86 with pulse of 79, temperature 97.4. He is 98% on room air. General description is a middle-aged male up in the bed in no distress. RESPIRATORY SYSTEM: Unlabored breathing, clear to auscultation anteriorly. HEART: S1, S2. Regular rate and rhythm. ABDOMEN: Soft, no tenderness. Right foot lateral border wound with no significant slough tissue. Surrounding swelling and redness has improved. LABS: Wound culture so far negative. DIAGNOSTIC IMPRESSION AND PLAN: Patient with right diabetic foot infection, more likely blister/pustule status post debridement. Culture has been negative for resistant pathogen. He will finish therapy with oral Keflex, local care with Aquacel Silver dressing and follow up in the outpatient setting. MMODL / IJN: [id number] /
[2020-07-27 17:12] LABS: Glucose,Whole Blood 191 mg/dL (75-99)
[2020-07-27 20:08] LABS: Glucose,Whole Blood 205 mg/dL (75-99)
[2020-07-27] MEDS: INSULIN DETEMIR (LEVEMIR) 100 UNIT/ML SYR SQ SCH (20:29)
[2020-07-28] MEDS ORDERED: VANCOMYCIN TROUGH DUE 1 EACH MISC MISCELLANE ONE (04:00)
[2020-07-28 05:19] VITALS: BP 132/82; PULSE 78; RESP 16; TEMP 98
[2020-07-28] MEDS: HEPARIN SODIUM,PORCINE 5,000 UNIT/ML 1 ML VIAL SQ SCH (07:01)
[2020-07-28 07:16] LABS: Glucose,Whole Blood 122 mg/dL (75-99)
[2020-07-28] MEDS: INSULIN ASPART (NovoLOG) 100 UNIT/ML VIAL SQ SCH ×2 (08:23→08:35)
[2020-07-28] MEDS: CEFEPIME 1 GM in SODIUM CHLORIDE 0.9% 50 ML IVPB SCH (08:36)
[2020-07-28] MEDS: lisinopriL 10 MG TAB PO SCH (08:36)
[2020-07-28] MEDS: LINAGLIPTIN 5 MG TABLET PO SCH (08:36)
[2020-07-28] MEDS: glipiZIDE 10 MG TAB PO SCH (08:36)
--- NOTE | 2020-07-28 08:58 | P.PN ---
Progress Note - Text Progress Note Date: 07/28/20 Patient was seen and evaluated by me today. Left hand swelling improved significantly. Patient was able to complete a fist today. This is a 59-year-old male with past medical history noted below who presented to the emergency room with right foot ulcer and cellulitis. Patient was evaluated in the ER and currently admitted to the hospital for further management of his medical problems noted below. 1. Diabetic ulcer of the right foot with surrounding cellulitis, started on broad-spectrum antibiotic with IV vancomycin and cefepime. Status post debridement at bedside by vascular surgery. Cultures showed no significant growth. Patient was seen and evaluated by infectious disease. Plan to finish antibiotic course with Keflex for 10 more days. 2. Type 2 diabetes, not well controlled. A1c 10.3 increase home dose of Lantus to 50 units at bedtime. Added NovoLog 6 units 3 times a day with meals plus sliding scale. Diabetic diet. Counseled extensively regarding tight glycemic control. Follow-up with PCP closely. 3. Essential hypertension, newly diagnosed during this admission. Started on lisinopril 10 mg daily. Blood pressure improved. Continue wound care as directed by vascular surgery. Follow-up in the office as directed with wound care and PCP.
[2020-07-28 09:32] LABS: African American GFR (CKD) 96.4 (60.0-200.0); Anion Gap 7.5 mmol/L (4.00-12.00); C Reactive Protein 4.4 mg/dL (0.0-0.8); Calcium 9.8 mg/dL (8.7-10.3); Carbon Dioxide 25.5 mmol/L (21.6-31.8); Non-African American GFR(CKD) 83.2 (60.0-200.0); Potassium 4.3 mmol/L (3.5-5.5)
== END 2020-07-28 09:45 | disposition home or self-care (01) | DRG 623 ==
LOC: EC 11:09 → 5NMEDONC 14:54
PROVIDERS: ADMIT Internal Medicine; ATTEND Internal Medicine
PROC: 0JBQ0ZZ Excision of Right Foot Subcutaneous Tissue and Fascia, Open Approach (ICD-10-PCS; principal; 2020-07-25)
DX: E11.621 Type 2 diabetes mellitus with foot ulcer (principal); L03.115 Cellulitis of right lower limb; T82.898A Other specified complication of vascular prosthetic devices, implants and grafts, initial encounter; E11.628 Type 2 diabetes mellitus with other skin complications; E11.42 Type 2 diabetes mellitus with diabetic polyneuropathy; E03.9 Hypothyroidism, unspecified; I10 Essential (primary) hypertension; I25.2 Old myocardial infarction; L97.519 Non-pressure chronic ulcer of other part of right foot with unspecified severity; Z79.4 Long term (current) use of insulin; Z82.49 Family history of ischemic heart disease and other diseases of the circulatory system; Z83.3 Family history of diabetes mellitus; Z87.891 Personal history of nicotine dependence; Y82.9 Unspecified medical devices associated with adverse incidents; I80.8 Phlebitis and thrombophlebitis of other sites; E11.51 Type 2 diabetes mellitus with diabetic peripheral angiopathy without gangrene; E11.65 Type 2 diabetes mellitus with hyperglycemia; Z79.899 Other long term (current) drug therapy; K57.30 Diverticulosis of large intestine without perforation or abscess without bleeding; Z20.822 Contact with and (suspected) exposure to COVID-19; G47.33 Obstructive sleep apnea (adult) (pediatric); Z84.1 Family history of disorders of kidney and ureter; Z91.81 History of falling; M54.9 Dorsalgia, unspecified; Z87.440 Personal history of urinary (tract) infections; Z88.5 Allergy status to narcotic agent; Z88.0 Allergy status to penicillin
CPT/HCPCS: 36415; 80048; 80053; 80202; 83036; 83605; 85025; 85652; 86140; 87040; 87070; 87075; 87205; 87635; 96365; 99284

== ENCOUNTER 2021-05-05 17:36 | Inpatient (IN) | payer BC ==
[2021-05-05] MEDS ORDERED: IBUPROFEN 600 MG TAB PO STA (18:11)
[2021-05-05] MEDS ORDERED: SODIUM CHLORIDE 0.9% 1,000 ML IV STA ×2 (18:12→22:47)
[2021-05-05] MEDS ORDERED: VANCOMYCIN IV PER PHARMACY 1 EACH MISC MISCELLANE PRN (18:12)
--- NOTE | 2021-05-05 18:50 | XR ---
EXAMINATION TYPE: XR foot complete RT DATE OF EXAM: 05/05/2021 COMPARISON: 07/23/2020 HISTORY: Foot pain TECHNIQUE: 3 views FINDINGS: there is moderately large plantar and Achilles calcaneal spur formation. Metatarsals are intact. I se e no fracture nor dislocation. There are no erosions. IMPRESSION: Calcaneal spurring. No fracture seen. No change. No sign of osteomyelitis.
--- NOTE | 2021-05-05 19:10 | ED ---
General Adult HPI - General Chief complaint: Extremity Problem,Nontraumatic Stated complaint: diabetic wound on foot Time Seen by Provider: 05/05/21 17:50 Source: patient, RN notes reviewed, old records reviewed Mode of arrival: ambulatory Limitations: no limitations - History of Present Illness Initial comments: Patient is a 60-year-old male with past medical history remarkable for insulin dependent diabetes that is poorly controlled, recurrent right foot diabetic ulcers, hypertension, thyroid disorder who presents emergency Department complaining of a concern for diabetic foot infection of the right foot. He has a history of ulcers to the right foot. He is concerned that there may be an acute infection and, as he has noticed over the last few days has been some erythema as well as mild swelling. He typically follows up with wound care, Dr. Luis who is very particular about debriding this patient's foot infections. Patient states that he was told by Dr. Luis not have anyone else debride or I&D them. Patient denies any systemic symptoms including shortness of breath, chest pain, abdominal pain. Denies any new onset sensory deficits. Endorses some mild pain over the plantar aspect of his foot, however is controlled with ibuprofen. Denies any swelling or fevers. Foot does appear somewhat warm. Denies any extension of the potential infection to his leg. He does have chronic skin changes to his right lower extremity that are unchanged. He states that she typically requires IV antibiotics, as he was on clindamycin and has been taking it over the last 3 days but the infection seems to be getting worse. - Related Data Home Medications Medication Instructions Recorded Confirmed glyBURIDE [Diabeta] 5 mg PO AC-BID@0800,1800 07/23/20 05/05/21 sitaGLIPtin [Januvia] 100 mg PO DAILY 07/23/20 05/05/21 Insulin Aspart [NovoLOG Flexpen] 9 units SQ BID@1200,1700 05/05/21 05/05/21 Insulin Glargine,Hum.rec.anlog 10 unit SQ HS 05/05/21 05/05/21 [Basaglar Kwikpen U-100] Insulin Glargine,Hum.rec.anlog 52 unit SQ DAILY 05/05/21 05/05/21 [Basaglar Kwikpen U-100] Allergies Allergy/AdvReac Type Severity Reaction Status Date / Time ketorolac tromethamine Allergy Severe Swelling Verified 05/05/21 18:52 [From Toradol] Penicillins Allergy Severe Anaphylaxis Verified 05/05/21 18:52 Review of Systems ROS Statement: Those systems with pertinent positive or pertinent negative responses have been documented in the HPI. Review of Systems: CONST: Denies fever EYES: Denies blurry vision ENT: Denies nasal congestion C/V: Denies Chest pain RESP: Denies shortness of breath GI: Denies abdominal pain : Denies dysuria SKIN: Endorses right foot skin infection MSK: Denies joint pain. NEURO: Denies headache ROS Other: All systems not noted in ROS Statement are negative. Past Medical History Past Medical History: Diabetes Mellitus, Eye Disorder, Hypertension, Myocardial Infarction (ID), Thyroid Disorder Additional Past Medical History / Comment(s): IDDM type 2, diabetic neuropathy bilateral feet, diverticulosis, obstructive sleep apnea has CPAP but does not use it, hypothyroid, PVD, astigmatism bilaterally, R eye retinal hemorrhage, back pain since a fall."IN MAY 2016 HAD ECOLI IN URINE", Last Myocardial Infarction Date:: 1997 History of Any Multi-Drug Resistant Organisms: None Reported Past Surgical History: Heart Catheterization Additional Past Surgical History / Comment(s): 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 done at [facility], colonoscopy, 1997 cardiac cath-normal.picc line lt upper arm -since removed Past Anesthesia/Blood Transfusion Reactions: Previous Problems w/ Anesthesia Additional Past Anesthesia/Blood Transfusion Reaction / Comment(s): WAS AWAKE WHOLE TIME DURING LAST COLONOSCOPY Past Psychological History: No Psychological Hx Reported Smoking Status: Former smoker Past Alcohol Use History: None Reported Past Drug Use History: None Reported - Past Family History Mother Family Medical History: Diabetes Mellitus, Hypertension Additional Family Medical History / Comment(s): Mother in her 70's Father Family Medical History: Hypertension, Renal Disease Additional Family Medical History / Comment(s): Father at the age of 71 yrs from renal failure. General Exam - General Exam Comments Initial Comments: Constitutional: Blood pressure was default value, pulse was default value, respirations were default value, pulse oximetry was default value, temperature was default value. General: Appears in no acute distress. HEAD: Normal with no signs of head trauma. EYES: PERRLA, EOMI, conjunctiva normal, no discharge. ENT: Hearing grossly intact, normal oropharynx. RESPIRATORY: Clear breath sounds bilaterally. No wheezes, rales, or rhonchi. C/V: Regular rate and rhythm. S1 and S2 auscultated, no edema, peripheral pulses 2+ and intact throughout ABD: Abd is soft, nontender, nondistended EXT: Normal range of motion, no obvious deformity SKIN: Patient has what appears to be small blister formation over the plantar aspect of the right foot. There is no crepitus. No signs of skin changes. He does have chronic ulcers on the right foot that have eschar present over the lateral aspect of the foot as well as over the great toe. There is erythema surrounding the plantar aspect of the foot. No other skin changes at this time. No hemorrhagic bullae. No skip lesions. Minimal tenderness. No acute changes in the right lower extremity otherwise. Infection is isolated to the plantar aspect of the right foot. No open wound at this time. NEURO: Alert and oriented 4. Chronic diabetic neuropathy without any acute changes. Limitations: no limitations Course Vital Signs 05/05/21 17:39 Temperature 98.2 F Pulse Rate 91 Respiratory 18 Rate Blood Pressure 180/79 O2 Sat by Pulse 98 Oximetry Medical Decision Making - Medical Decision Making Based on the patient's presentation and physical exam, I'm concerned for acute cellulitic infection that is resistant to PO antibiotics of the patient's right foot. I did discuss possible I&D or debridement of the right foot, however patient is adamant that Dr. Nieves his wound care doctor is very particular and would prefer if she doesn't. I believe this is reasonable, as the patient will be admitted for IV antibiotics as he has been on by mouth, myself the last 2 days without improvement in the rash. I do not have concern for necrotizing fasciitis at this time, as it appears to be just a localized cellulitis with possible purulence. However we will obtain basic laboratory studies, blood cultures, and start patient on empiric IV vancomycin, IV fluids, and ibuprofen. Patient was in agreement with this plan. X-ray of the foot will also be obtained to rule out possible osteomyelitis. No open wound for wound culture at this time. Patient's x-ray revealed no signs of osteomyelitis.Laboratory studies are remarkable for a mildly elevated lactic acid of 2.4. Covid is negative. Patient is hyperglycemic to 406 with a history of poorly controlled diabetes. Remainder of his labs are unremarkable. Blood cultures were sent. I spoke with the patient regarding the results of his labs and imaging. I still believe it is best for him to be admitted with evaluation by Dr. Nieves. He was in agreement with this plan. Dr. Nieves was consulted for evaluation tomorrow. I spoke with the admitting [facility]. Patient was therefore admitted in stable condition. IV vancomycin will be continued. - Lab Data Result diagrams: 05/05/21 19:00 05/05/21 19:00 Lab Results 05/05/21 05/05/21 05/05/21 Range/Units 19:00 19:00 19:00 WBC 8.7 (3.8-10.6) k/uL RBC 4.52 (4.30-5.90) m/uL Hgb 14.2 (13.0-17.5) gm/dL Hct 40.7 (39.0-53.0) % MCV 90.2 (80.0-100.0) fL MCH 31.5 (25.0-35.0) pg MCHC 34.9 (31.0-37.0) g/dL RDW 14.1 (11.5-15.5) % Plt Count 152 (150-450) k/uL MPV 8.4 Neutrophils % 65 % Lymphocytes % 26 % Monocytes % 4 % Eosinophils % 3 % Basophils % 1 % Neutrophils # 5.6 (1.3-7.7) k/uL Lymphocytes # 2.3 (1.0-4.8) k/uL Monocytes # 0.4 (0-1.0) k/uL Eosinophils # 0.3 (0-0.7) k/uL Basophils # 0.0 (0-0.2) k/uL Sodium 133 L (137-145) mmol/L Potassium 4.6 (3.5-5.1) mmol/L Chloride 99 (98-107) mmol/L Carbon Dioxide 26 (22-30) mmol/L Anion Gap 8 mmol/L BUN 16 (9-20) mg/dL Creatinine 0.99 (0.66-1.25) mg/dL Est GFR (CKD-EPI)AfAm >90 (>60 ml/min/1.73 sqM) Est GFR (CKD-EPI)NonAf 84 (>60 ml/min/1.73 sqM) Glucose 406 H (74-99) mg/dL Lactic Ac Sepsis Rflx Plasma Lactic Acid Tone 2.4 H* (0.7-2.0) mmol/L Calcium 8.9 (8.4-10.2) mg/dL Magnesium 1.8 (1.6-2.3) mg/dL Total Bilirubin 0.3 (0.2-1.3) mg/dL AST 53 (17-59) U/L ALT 54 H (4-49) U/L Alkaline Phosphatase 81 (38-126) U/L Total Protein 6.8 (6.3-8.2) g/dL Albumin 3.4 L (3.5-5.0) g/dL 05/05/21 Range/Units 19:32 WBC (3.8-10.6) k/uL RBC (4.30-5.90) m/uL Hgb (13.0-17.5) gm/dL Hct (39.0-53.0) % MCV (80.0-100.0) fL MCH (25.0-35.0) pg MCHC (31.0-37.0) g/dL RDW (11.5-15.5) % Plt Count (150-450) k/uL MPV Neutrophils % % Lymphocytes % % Monocytes % % Eosinophils % % Basophils % % Neutrophils # (1.3-7.7) k/uL Lymphocytes # (1.0-4.8) k/uL Monocytes # (0-1.0) k/uL Eosinophils # (0-0.7) k/uL Basophils # (0-0.2) k/uL Sodium (137-145) mmol/L Potassium (3.5-5.1) mmol/L Chloride (98-107) mmol/L Carbon Dioxide (22-30) mmol/L Anion Gap mmol/L BUN (9-20) mg/dL Creatinine (0.66-1.25) mg/dL Est GFR (CKD-EPI)AfAm (>60 ml/min/1.73 sqM) Est GFR (CKD-EPI)NonAf (>60 ml/min/1.73 sqM) Glucose (74-99) mg/dL Lactic Ac Sepsis Rflx Y Plasma Lactic Acid Tone (0.7-2.0) mmol/L Calcium (8.4-10.2) mg/dL Magnesium (1.6-2.3) mg/dL Total Bilirubin (0.2-1.3) mg/dL AST (17-59) U/L ALT (4-49) U/L Alkaline Phosphatase (38-126) U/L Total Protein (6.3-8.2) g/dL Albumin (3.5-5.0) g/dL Disposition Clinical Impression: Cellulitis, Diabetic foot infection Disposition: ADMITTED IP TO THIS HOSP Condition: Stable
[2021-05-05 19:15] LABS: Basophils % (A) 1 %; Eosinophils # (A) 0.3 k/uL (0-0.7); Eosinophils % (A) 3 %; HCT 40.7 % (39.0-53.0); HGB 14.2 gm/dL (13.0-17.5); Lymphocytes # (A) 2.3 k/uL (1.0-4.8); Lymphocytes % (A) 26 %; MCH 31.5 pg (25.0-35.0); MCHC 34.9 g/dL (31.0-37.0); MCV 90.2 fL (80.0-100.0); Mean Platelet Volume 8.4; Monocytes # (A) 0.4 k/uL (0-1.0); Monocytes % (A) 4 %; Neutrophils # (A) 5.6 k/uL (1.3-7.7); Neutrophils % (A) 65 %; Platelet Count 152 k/uL (150-450); RBC 4.52 m/uL (4.30-5.90); RDW 14.1 % (11.5-15.5); WBC 8.7 k/uL (3.8-10.6)
[2021-05-05 19:27] LABS: ALT 54 U/L (4-49); AST 53 U/L (17-59); African American GFR (CKD) >90 (>60 ml/min/1.73 sqM); Albumin 3.4 g/dL (3.5-5.0); Alkaline Phosphatase 81 U/L (38-126); Anion Gap 8 mmol/L; Blood Urea Nitrogen 16 mg/dL (9-20); Calcium 8.9 mg/dL (8.4-10.2); Carbon Dioxide 26 mmol/L (22-30); Chloride 99 mmol/L (98-107); Glucose 406 mg/dL (74-99); Magnesium 1.8 mg/dL (1.6-2.3); Non-African American GFR(CKD) 84 (>60 ml/min/1.73 sqM); Potassium 4.6 mmol/L (3.5-5.1); Sodium 133 mmol/L (137-145); Total Bilirubin 0.3 mg/dL (0.2-1.3); Total Protein 6.8 g/dL (6.3-8.2)
[2021-05-05] MEDS ORDERED: VANCOMYCIN 2,500 MG in SODIUM CHLORIDE 0.9% 500 ML 500 ML IVPB ONE (20:00)
[2021-05-05 23:34] LABS: Glucose,Whole Blood 296 mg/dL (75-99)
[2021-05-06] MEDS: INSULIN DETEMIR (LEVEMIR) 100 UNIT/ML SYR SQ SCH ×3 (00:44→22:05)
[2021-05-06 06:25] LABS: Glucose,Whole Blood 206 mg/dL (75-99)
[2021-05-06 07:12] LABS: African American GFR (CKD) >90 (>60 ml/min/1.73 sqM); Anion Gap 7 mmol/L; Blood Urea Nitrogen 16 mg/dL (9-20); Calcium 8.6 mg/dL (8.4-10.2); Carbon Dioxide 25 mmol/L (22-30); Chloride 104 mmol/L (98-107); Glucose 210 mg/dL (74-99); Non-African American GFR(CKD) >90 (>60 ml/min/1.73 sqM); Potassium 4.1 mmol/L (3.5-5.1); Sodium 136 mmol/L (137-145)
[2021-05-06] MEDS: IBUPROFEN 400 MG TAB PO PRN (10:28)
[2021-05-06] MEDS: glipiZIDE 10 MG TAB PO SCH ×2 (10:28→18:04)
[2021-05-06] MEDS: LINAGLIPTIN 5 MG TABLET PO SCH (10:29)
[2021-05-06] MEDS: VANCOMYCIN 2,000 MG in SODIUM CHLORIDE 0.9% 500 ML 500 ML IVPB SCH ×2 (10:31→21:38)
--- NOTE | 2021-05-06 11:19 | P.HPIM ---
History of Present Illness Patient is a pleasant 60-year-old male with known history of 4 type 2 diabetes mellitus severe diabetic peripheral neuropathy probably Charcot's came in because of the swelling and discoloration in the aspect of the great toe which appears to be trauma and hematoma and lateral aspect of the right foot which appears to be trauma as well. There is some redness but no significant cellulitis her local is of temperature. Patient was admitted with concerns of cellulitis was started on vancomycin patient had history of MRSA in the past Patient appears to have some peripheral neuropathy with feeble pulses in the right lower extremity and the patient the use to smoke in the past. Patient follows was up podiatry as an outpatient. REVIEW OF SYSTEMS: CONSTITUTIONAL: No fever, no malaise, no fatigue. HEENT: No recent visual problems or hearing problems. Denied any sore throat. CARDIOVASCULAR: No chest pain, orthopnea, PND, no palpitations, no syncope. PULMONARY: No shortness of breath, no cough, no hemoptysis. GASTROINTESTINAL: No diarrhea, no nausea, no vomiting, no abdominal pain. NEUROLOGICAL: No headaches, no weakness, no numbness. HEMATOLOGICAL: Denies any bleeding or petechiae. GENITOURINARY: Denies any burning micturition, frequency, or urgency. MUSCULOSKELETAL/RHEUMATOLOGICAL: Denies any joint pain, swelling, or any muscle pain. ENDOCRINE: Denies any polyuria or polydipsia. The rest of the 14-point review of systems is negative. PHYSICAL EXAMINATION: GENERAL: The patient is alert and oriented x3, not in any acute distress. Well developed, well nourished. HEENT: Pupils are round and equally reacting to light. EOMI. No scleral icterus. No conjunctival pallor. Normocephalic, atraumatic. No pharyngeal erythema. No thyromegaly. CARDIOVASCULAR: S1 and S2 present. No murmurs, rubs, or gallops. PULMONARY: Chest is clear to auscultation, no wheezing or crackles. ABDOMEN: Soft, nontender, nondistended, normoactive bowel sounds. No palpable organomegaly. MUSCULOSKELETAL: No joint swelling or deformity. EXTREMITIES: No cyanosis, clubbing, or pedal edema. NEUROLOGICAL: Gross neurological examination did not reveal any focal deficits. 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 We will get the opinion of infectious disease doctor regarding creation of antibiotics patient probably can be discharged with follow-up with podiatry and wound care clinic as an outpatient. Patient had history of MRSA in the past -Type 2 diabetes mellitus uncontrolled elevated blood sugars patient will be resumed on home regimen along with sliding scale. Further titration as per primary care physician as an outpatient -Severe diabetic neuropathy Hypertension -Coronary artery disease Past Medical History Past Medical History: Diabetes Mellitus, Eye Disorder, Hypertension, Myocardial Infarction (VT), Thyroid Disorder Additional Past Medical History / Comment(s): IDDM type 2, diabetic neuropathy bilateral feet, diverticulosis, obstructive sleep apnea has CPAP but does not use it, hypothyroid, PVD, astigmatism bilaterally, R eye retinal hemorrhage, back pain since a fall."IN MAY 2016 HAD ECOLI IN URINE", Last Myocardial Infarction Date:: 1997 History of Any Multi-Drug Resistant Organisms: None Reported Past Surgical History: Heart Catheterization Additional Past Surgical History / Comment(s): 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 done at [facility], colonoscopy, 1997 cardiac cath-normal.picc line lt upper arm -since removed Past Anesthesia/Blood Transfusion Reactions: Previous Problems w/ Anesthesia Additional Past Anesthesia/Blood Transfusion Reaction / Comment(s): WAS AWAKE WHOLE TIME DURING LAST COLONOSCOPY Past Psychological History: No Psychological Hx Reported Smoking Status: Former smoker Past Alcohol Use History: None Reported Past Drug Use History: None Reported - Past Family History Mother Family Medical History: Diabetes Mellitus, Hypertension Additional Family Medical History / Comment(s): Mother in her 70's Father Family Medical History: Hypertension, Renal Disease Additional Family Medical History / Comment(s): Father at the age of 71 yrs from renal failure. Medications and Allergies Home Medications Medication Instructions Recorded Confirmed Type glyBURIDE [Diabeta] 5 mg PO AC-BID@0800,1800 07/23/20 05/05/21 History sitaGLIPtin [Januvia] 100 mg PO DAILY 07/23/20 05/05/21 History Insulin Aspart [NovoLOG Flexpen] 9 units SQ BID@1200,1700 05/05/21 05/05/21 History Insulin Glargine,Hum.rec.anlog 10 unit SQ HS 05/05/21 05/05/21 History [Basaglar Kwikpen U-100] Insulin Glargine,Hum.rec.anlog 52 unit SQ DAILY 05/05/21 05/05/21 History [Basaglar Kwikpen U-100] Allergies Allergy/AdvReac Type Severity Reaction Status Date / Time ketorolac tromethamine Allergy Severe Swelling Verified 05/05/21 18:52 [From Toradol] Penicillins Allergy Severe Anaphylaxis Verified 05/05/21 18:52 Physical Exam Vitals: Vital Signs Temp Pulse Pulse Resp BP BP Pulse Ox 05/06/21 08:22 98.2 F 90 20 145/98 96 05/05/21 21:58 97.9 F 75 16 150/87 96 05/05/21 17:39 98.2 F 91 18 180/79 98 Intake and Output 05/05/21 05/06/21 05/06/21 22:59 06:59 14:59 Output Total 400 Balance -400 Output: Urine 400 Other: Voiding Method Toilet Urinal # Voids 1 Weight 132.449 kg Results CBC & Chem 7: 05/05/21 19:00 05/06/21 06:33 Labs: Abnormal Lab Results - Last 24 Hours (Table) 05/05/21 05/05/21 05/05/21 Range/Units 19:00 19:00 23:27 Sodium 133 L (137-145) mmol/L Glucose 406 H (74-99) mg/dL POC Glucose (mg/dL) 296 H (75-99) mg/dL Plasma Lactic Acid Tone 2.4 H* (0.7-2.0) mmol/L ALT 54 H (4-49) U/L Albumin 3.4 L (3.5-5.0) g/dL 05/06/21 05/06/21 Range/Units 06:23 06:33 Sodium 136 L (137-145) mmol/L Glucose 210 H (74-99) mg/dL POC Glucose (mg/dL) 206 H (75-99) mg/dL Plasma Lactic Acid Tone (0.7-2.0) mmol/L ALT (4-49) U/L Albumin (3.5-5.0) g/dL Thrombosis Risk Factor Assmnt - Choose All That Apply Each Factor Represents 1 point: Age 41-60 years, Obesity (BMI >25) Thrombosis Risk Factor Assessment Total Risk Factor Score: 2 Thrombosis Risk Factor Assessment Level: Low Risk
--- NOTE | 2021-05-06 11:20 | P.DS ---
Providers Date of admission: 05/05/21 20:02 Attending physician: Ed Saldana Consults: 05/05/21 20:03 Consult Physician Urgent Consulting Provider: Suleiman Nieves Consult Reason/Comments: Diabetic foot infection, cellulitis. Do you want consulting provider notified?: Yes, Notify in am 05/06/21 11:17 Consult Physician Routine Consulting Provider: Eran Johnson Consult Reason/Comments: Cellulitis Do you want consulting provider notified?: Yes Primary care physician: Soha Linn MD Hospital Course: Refer to my HPI for further details Patient Condition at Discharge: Stable Plan - Discharge Summary New Discharge Prescriptions: No Action sitaGLIPtin [Januvia] 100 mg PO DAILY glyBURIDE [Diabeta] 5 mg PO AC-BID@0800,1800 Insulin Glargine,Hum.rec.anlog [Basaglar Kwikpen U-100] 10 unit SQ HS Insulin Aspart [NovoLOG Flexpen] 9 units SQ BID@1200,1700 Insulin Glargine,Hum.rec.anlog [Basaglar Kwikpen U-100] 52 unit SQ DAILY Discharge Medication List glyBURIDE [Diabeta] 5 mg PO AC-BID@0800,1800 07/23/20 [History] sitaGLIPtin [Januvia] 100 mg PO DAILY 07/23/20 [History] Insulin Aspart [NovoLOG Flexpen] 9 units SQ BID@1200,1700 05/05/21 [History] Insulin Glargine,Hum.rec.anlog [Basaglar Kwikpen U-100] 10 unit SQ HS 05/05/21 [History] Insulin Glargine,Hum.rec.anlog [Basaglar Kwikpen U-100] 52 unit SQ DAILY 05/05/21 [History] Follow up Appointment(s)/Referral(s): Soha Linn MD [Primary Care Provider] - 1-2 days [facility] [NON-STAFF] -
[2021-05-06 12:52] LABS: Glucose,Whole Blood 258 mg/dL (75-99)
[2021-05-06] MEDS: INSULIN ASPART (NovoLOG) 100 UNIT/ML VIAL SQ SCH ×5 (13:22→22:05)
--- NOTE | 2021-05-06 17:05 | PN ---
PROGRESS NOTE This is a 60-year-old diabetic male. He has a dry callus on the right foot big toe and plantar aspect. There is some fluctuation noted on the lateral aspect of the foot and plantar aspect. No open wound noted. Discussed with Dr. Ramos. We will continue with IV antibiotic under the care of Infectious Disease. We will watch for 24 hours. If we note any drainage, we will do some wound debridement and I and D. In the meantime, continue with the vancomycin. We will check again tomorrow. Patient will not be discharged today. We will watch him another few days. MMODL / IJN: [id number] /
--- NOTE | 2021-05-06 17:05 | CONS ---
DATE OF CONSULTATION: 05/06/2021 This is a 60-year-old diabetic male, well known to me from the wound clinic. The patient came with a history of some possibility of right foot callus formation and also on the left foot big toe there is a dry callus. There is some fluctuation noted on the plantar aspect of the foot. Patient was started on vancomycin. There is no tenderness noted. There is some fluctuation at the lateral aspect of the right foot. No discharge noted. The right foot big toe has a dry callus and also there is a callus on the plantar aspect of the foot. MEDICAL HISTORY: History of diabetes. Patient had an ulcer and callus formation on the foot in the past. He was treated in the wound clinic. PHYSICAL EXAMINATION: Neck is supple. Trachea central. Chest clear. Abdomen soft. Femorals are present. Dorsal pedis is palpable. There is some fluctuation noted on the lateral aspect of the right foot. No discharge noted. There is a dry callus on the right big toe. PLAN: Patient will go home on Cipro. I will follow in my office on Thursday. MMCATHRYN / STELLAN: [id number] / MTDD
[2021-05-06 17:52] LABS: Glucose,Whole Blood 336 mg/dL (75-99)
[2021-05-06 21:42] LABS: Glucose,Whole Blood 244 mg/dL (75-99)
[2021-05-07 06:41] LABS: Glucose,Whole Blood 146 mg/dL (75-99)
[2021-05-07] MEDS: INSULIN ASPART (NovoLOG) 100 UNIT/ML VIAL SQ SCH ×6 (06:43→21:02)
--- NOTE | 2021-05-07 08:52 | P.CONS ---
History of Present Illness - Reason for Consult Consult date: 05/06/21 right foot infection Requesting physician: Klaus Ramos - Chief Complaint right foot pain and redness x few days - History of Present Illness History of present illness : Patient is 60-year-old male with a past medical history significant for diabetes mellitus underlying diabetic neuropathy patient is presenting to the hospital her last evening with concern for right diabetic foot infection in this patient apparently noticed to having swelling and redness on the lateral aspect of his right foot and this patient did have some erythema patient has been complaining of some pressure sensation to the right foot mostly to the lateral border with some minimal redness currently with no open wound or any drainage patient describing more of a pressure sensation intensities about 4 to 5-10 and no radiation on presentation to the hospital the patient has been afebrile patient did have a normal white count creatinine has been normal raymundo PCR was negative patient did have x-rays of the foot calcaneal spurring no fracture seen no signs of osteomyelitis patient did have a penicillin allergy patient was started on vancomycin has been admitted to the hospital infectious disease was consulted for further management of antibiotic therapy Review of system: CONSTITUTIONAL: Positive for weakness denies fever. EYES: No complaint. ENT: No complaint. RESPIRATORY: No complaint. CARDIOVASCULAR: No complaint. GENITOURINARY: No complaint. GASTROINTESTINAL: No complaint. MUSCULOSKELETAL: As per history of present illness. INTEGUMENTARY: No complaint. PSYCHOLOGIC: No complaint. ENDOCRINE: No complaint. NEUROLOGIC: No complaint. Past medical history : Reviewed, documented below Past surgical history : Reviewed, documented below Social history: Reviewed, documented below Medications: Reviewed, as documented below EXAMINATION: Vital sigans= Reviewed and documented below GENERAL DESCRIPTION: Middle-aged male lying in bed, no distress. No tachypnea or accessory muscle of respiration use. HEENT: Shows Pallor , no scleral icterus. Oral mucous membrane is dry. NECK: Trachea central, no thyromegaly. LUNGS: Unlabored breathing. Clear to auscultation anteriorly. No wheeze or crackle. HEART: S1, S2, regular rate and rhythm. ABDOMEN: Soft, no tenderness , guarding or rigidity EXTREMITIES: Right foot lateral border at the plantar aspect did have minimal erythema minimal warmth no wound or any drainage SKIN: No rash, no masses palpable. NEUROLOGICAL: The patient is awake, alert, oriented x3, mood and affect normal. LABS AND RADIOLOGY: Reviewed results see below Assessment : 1-Patient presented to hospital with right foot pain in this we did have some erythema on the plantar and the left aspect of his right foot no history of any trauma patient currently with no fever or elevated white count clinically not behaving as a deep infection underlying superficial cellulitis not entirely excluded 2-penicillin allergy that would limit the number of antibiotics safe to use Plan: 1-we will continue the patient on vancomycin pharmacy to dose while watching his kidney function closely overnight if the patient did have overall improvement may be able to transition to oral antibiotic in the a.m. 2-locally to continue per vascular surgery 3-patient may benefit from offloading shoes in the outpatient setting We will follow on clinical condition and cultures to further adjust medication if needed Thank you for this consultation we will follow the patient along with you Past Medical History Past Medical History: Diabetes Mellitus, Eye Disorder, Hypertension, Myocardial Infarction ([place]), Thyroid Disorder Additional Past Medical History / Comment(s): IDDM type 2, diabetic neuropathy bilateral feet, diverticulosis, obstructive sleep apnea has CPAP but does not use it, hypothyroid, PVD, astigmatism bilaterally, R eye retinal hemorrhage, back pain since a fall."IN MAY 2016 HAD ECOLI IN URINE", Last Myocardial Infarction Date:: 1997 History of Any Multi-Drug Resistant Organisms: None Reported Past Surgical History: Heart Catheterization Additional Past Surgical History / Comment(s): 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 done at [facility], colonoscopy, 1997 cardiac cath-normal.picc line lt upper arm -since removed Past Anesthesia/Blood Transfusion Reactions: Previous Problems w/ Anesthesia Additional Past Anesthesia/Blood Transfusion Reaction / Comm: WAS AWAKE WHOLE TIME DURING LAST COLONOSCOPY Past Psychological History: No Psychological Hx Reported Smoking Status: Former smoker Past Alcohol Use History: None Reported Past Drug Use History: None Reported - Past Family History Mother Family Medical History: Diabetes Mellitus, Hypertension Additional Family Medical History / Comment(s): Mother in her 70's Father Family Medical History: Hypertension, Renal Disease Additional Family Medical History / Comment(s): Father at the age of 71 yrs from renal failure. Medications and Allergies Home Medications Medication Instructions Recorded Confirmed Type glyBURIDE [Diabeta] 5 mg PO AC-BID@0800,1800 07/23/20 05/05/21 History sitaGLIPtin [Januvia] 100 mg PO DAILY 07/23/20 05/05/21 History Insulin Aspart [NovoLOG Flexpen] 9 units SQ BID@1200,1700 05/05/21 05/05/21 History Insulin Glargine,Hum.rec.anlog 10 unit SQ HS 05/05/21 05/05/21 History [Basaglar Kwikpen U-100] Insulin Glargine,Hum.rec.anlog 52 unit SQ DAILY 05/05/21 05/05/21 History [Basaglar Kwikpen U-100] Allergies Allergy/AdvReac Type Severity Reaction Status Date / Time ketorolac tromethamine Allergy Severe Swelling Verified 05/05/21 18:52 [From Toradol] Penicillins Allergy Severe Anaphylaxis Verified 05/05/21 18:52 Physical Exam Vitals: Vital Signs Temp Pulse Pulse Resp BP BP Pulse Ox 05/06/21 08:22 98.2 F 90 20 145/98 96 05/05/21 21:58 97.9 F 75 16 150/87 96 05/05/21 17:39 98.2 F 91 18 180/79 98 Intake and Output 05/05/21 05/06/21 05/06/21 22:59 06:59 14:59 Output Total 400 Balance -400 Output: Urine 400 Other: Voiding Method Toilet Urinal # Voids 1 Weight 132.449 kg Results CBC & Chem 7: 05/05/21 19:00 05/06/21 06:33 Labs: Abnormal Lab Results - Last 24 Hours (Table) 05/05/21 05/05/21 05/05/21 Range/Units 19:00 19:00 23:27 Sodium 133 L (137-145) mmol/L Glucose 406 H (74-99) mg/dL POC Glucose (mg/dL) 296 H (75-99) mg/dL Plasma Lactic Acid Tone 2.4 H* (0.7-2.0) mmol/L ALT 54 H (4-49) U/L Albumin 3.4 L (3.5-5.0) g/dL 05/06/21 05/06/21 Range/Units 06:23 06:33 Sodium 136 L (137-145) mmol/L Glucose 210 H (74-99) mg/dL POC Glucose (mg/dL) 206 H (75-99) mg/dL Plasma Lactic Acid Tone (0.7-2.0) mmol/L ALT (4-49) U/L Albumin (3.5-5.0) g/dL
[2021-05-07] MEDS: INSULIN DETEMIR (LEVEMIR) 100 UNIT/ML SYR SQ SCH ×2 (08:58→21:02)
[2021-05-07] MEDS: ENOXAPARIN 40 MG/0.4 ML SYRINGE SQ SCH ×2 (08:58→09:27)
[2021-05-07] MEDS: glipiZIDE 10 MG TAB PO SCH ×2 (08:58→18:19)
[2021-05-07] MEDS: LINAGLIPTIN 5 MG TABLET PO SCH (08:58)
[2021-05-07] MEDS: IBUPROFEN 400 MG TAB PO PRN ×2 (10:39→21:08)
[2021-05-07] MEDS: VANCOMYCIN 2,000 MG in SODIUM CHLORIDE 0.9% 500 ML 500 ML IVPB SCH ×2 (11:31→21:02)
[2021-05-07 13:20] LABS: Glucose,Whole Blood 196 mg/dL (75-99)
--- NOTE | 2021-05-07 14:30 | PN ---
PROGRESS NOTE Aniceto Askew is a 60-year-old gentleman who is known to me from the past. Patient came with history of some callus formation noted on the right foot big toe which is dry; no discharge or redness noted. Patient has some bruising on the lateral aspect of the right foot with some fluctuation noted; nontender area. Also there is callus formation on the plantar aspect of the foot. Patient is under the care of Infectious Disease on IV antibiotic. Plan is to continue with IV antibiotic. We will look at the foot tomorrow. If there is any evidence of infection, we may do I and D of the right foot. MMODL / IJN: [id number] /
--- NOTE | 2021-05-07 15:09 | P.PN ---
Subjective Progress Note Date: 05/07/21 Patient is a pleasant 60-year-old male with known history of 4 type 2 diabetes mellitus severe diabetic peripheral neuropathy probably Charcot's came in because of the swelling and discoloration in the aspect of the great toe which appears to be trauma and hematoma and lateral aspect of the right foot which appears to be trauma as well. There is some redness but no significant cellulitis her local is of temperature. Patient was admitted with concerns of cellulitis was started on vancomycin patient had history of MRSA in the past Patient appears to have some peripheral neuropathy with feeble pulses in the right lower extremity and the patient the use to smoke in the past. Patient follows was up podiatry as an outpatient. 05/07/2021 Patient is seen and evaluated in follow-up this morning with infectious disease and vascular surgery Dr. Nieves following closely. Patient is maintained on IV vancomycin and will continue at this time. Patient did have a positive blood culture on 05/05/2021 showing gram-positive cocci in clusters and repeat blood culture that was done is negative for 24 hours and will repeat blood cultures and monitor for clearance of bacteremia. Patient was originally going to transition to oral antibiotics and will await for finalized cultures and discuss with infectious disease about discharge antibiotics. Dr. Nieves to evaluate the wound of the right foot tomorrow and discuss further about possible incision and drainage after evaluation. Review of systems: Constitutional: No reports of fatigue, fever, or chills Cardiovascular: No reports of chest pain or palpitations Respiratory: No reports of shortness of breath or cough GI: No reports of nausea, vomiting, or diarrhea : No reports of dysuria or retention Neurovascular: No reports of weakness or numbness All medications have been reviewed Active Medications Enoxaparin Sodium (Enoxaparin 40 Mg/0.4 Ml Syringe) 40 mg SQ DAILY [facility] Last Admin: 05/07/21 09:27 Dose: Not Given Documented by: Glipizide (Glipizide 10 Mg Tab) 10 mg PO AC-BID@0800,1800 [facility] Last Admin: 05/07/21 08:58 Dose: 10 mg Documented by: Vancomycin HCl 2,000 mg/ (Sodium Chloride) 500 mls @ 167 mls/hr IVPB Q12H [facility] Last Admin: 05/07/21 11:31 Dose: 167 mls/hr Documented by: Ibuprofen (Ibuprofen 400 Mg Tab) 400 mg PO Q6HR PRN PRN Reason: Mild Pain or Fever > 100.5 Last Admin: 05/07/21 10:39 Dose: 400 mg Documented by: Insulin Aspart (Insulin Aspart (Novolog) 100 Unit/Ml Vial) 9 unit SQ BID@1200,1700 [facility] Last Admin: 05/07/21 13:30 Dose: 9 unit Documented by: Insulin Aspart (Insulin Aspart (Novolog) 100 Unit/Ml Vial) 0 unit SQ ACHS [facility]; Protocol Last Admin: 05/07/21 13:30 Dose: 3 unit Documented by: Insulin Detemir (Insulin Detemir (Levemir) 100 Unit/Ml Syr) 10 unit SQ HS [facility] Last Admin: 05/06/21 22:05 Dose: 10 unit Documented by: Insulin Detemir (Insulin Detemir (Levemir) 100 Unit/Ml Syr) 52 unit SQ DAILY [facility] Last Admin: 05/07/21 08:58 Dose: 52 unit Documented by: Linagliptin (Linagliptin 5 Mg Tablet) 5 mg PO DAILY [facility] Last Admin: 05/07/21 08:58 Dose: 5 mg Documented by: Miscellaneous Information (Vancomycin Trough Due 1 Each Misc) 0 each MISCELLANE DIRECTED ONE Stop: 05/08/21 08:01 PHYSICAL EXAMINATION: GENERAL: The patient is alert and oriented x3, not in any acute distress. Well developed, well nourished. HEENT: Pupils are round and equally reacting to light. EOMI. No scleral icterus. No conjunctival pallor. Normocephalic, atraumatic. No pharyngeal erythema. No thyromegaly. CARDIOVASCULAR: S1 and S2 present. No murmurs, rubs, or gallops. PULMONARY: Chest is clear to auscultation, no wheezing or crackles. ABDOMEN: Soft, nontender, nondistended, normoactive bowel sounds. No palpable organomegaly. MUSCULOSKELETAL: No joint swelling or deformity. EXTREMITIES: No cyanosis, clubbing, or pedal edema. NEUROLOGICAL: Gross neurological examination did not reveal any focal deficits. SKIN: As mentioned in the history Assessment: -Right foot pain with evidence of traumatic injury and a severe diabetic neuropathy, patient appears to have Charcot foot does have some redness and is being followed by infectious disease and vascular surgery read continue with IV vancomycin -Patient had history of MRSA in the past -Bacteremia with blood cultures from 05/05/2021 showing gram-positive cocci in clusters and repeat blood culture negative for 24 hours, will add repeat blood culture monitor for clearance -Type 2 diabetes mellitus uncontrolled elevated blood sugars, oral diabetic medications have been resumed and will continue sliding scale and Accu-Cheks before meals and at bedtime -Severe diabetic neuropathy -Hypertension -Coronary artery disease -DVT prophylaxis: Lovenox -GI prophylaxis: Pepcid -Full code Plan: Patient to continue with IV vancomycin and infectious disease along with vascular surgery Dr. Nieves following. Patient does follow with the wound care center in the outpatient setting with Dr. Nieves and he will reevaluate the wound tomorrow and assess further with the possibility of incision and drainage. Patient did have positive blood cultures noted on 05/05/2021 and most recent repeat have been negative and will add another blood culture to monitor for clearance of bacteremia. Patient will likely transition to oral antibiotics on discharge. Recommend continue with Accu-Cheks and sliding scale as needed. Repeat labs in the morning. Will continue to monitor closely. Objective - Vital Signs Vital signs: Vital Signs Temp 98.0 F 05/07/21 08:10 Pulse 84 05/07/21 08:10 Resp 18 05/07/21 08:10 BP 152/83 05/07/21 08:10 Pulse Ox 97 05/07/21 08:10 Intake & Output 05/06/21 05/07/21 05/07/21 18:59 06:59 18:59 Output Total 800 Balance -800 Output: Urine 800 Other: Voiding Method Toilet Urinal # Voids 3 - Labs CBC & Chem 7: 05/05/21 19:00 05/06/21 06:33 Labs: Abnormal Lab Results - Last 24 Hours (Table) 05/06/21 05/06/21 05/06/21 Range/Units 12:51 17:51 21:42 POC Glucose (mg/dL) 258 H 336 H 244 H (75-99) mg/dL 05/07/21 Range/Units 06:40 POC Glucose (mg/dL) 146 H (75-99) mg/dL Microbiology - Last 24 Hours (Table) 05/05/21 18:50 Blood Culture Gram Stain - Preliminary Blood 05/05/21 18:50 Blood Culture - Final Blood 05/05/21 19:00 Blood Culture - Preliminary Blood No Growth after 24 hours
[2021-05-07 18:09] LABS: Glucose,Whole Blood 200 mg/dL (75-99)
[2021-05-07 20:41] LABS: Glucose,Whole Blood 285 mg/dL (75-99)
[2021-05-07] MEDS: FAMOTIDINE 20 MG TAB PO SCH (21:01)
--- NOTE | 2021-05-08 02:15 | PN ---
PROGRESS NOTE DATE OF SERVICE: 05/07/2021 REASON FOR FOLLOWUP: 1. Right diabetic foot infection/cellulitis. 2. Positive blood culture. INTERVAL HISTORY: The patient is afebrile. The patient is breathing comfortably. The patient denies any chest pain, shortness of breath or cough. No abdominal pain or any worsening pain to the right foot area. PHYSICAL EXAMINATION: Blood pressure 174/62 with a pulse of 75, temperature 98.4. He is 99% on room air. General description is a middle-aged male up in the bed in no distress. Respiratory system: Unlabored breathing. Clear to auscultation anteriorly. Heart S1, S2. Regular rate and rhythm. Abdomen soft, no tenderness. Right foot plantar aspect did have slight tenderness; no significant drainage. LABS: Blood culture is now showing Gram-positive cocci. DIAGNOSTIC IMPRESSION AND PLAN: Patient admitted to hospital with right foot lateral border with blister formation and minimal erythema, possible cellulitis. It does not look like a deep infection. However, the patient now has a positive blood culture. We will wait for the ID and sensitivity of this positive blood culture to determine his discharge antibiotics. Continue the vancomycin and monitor his clinical course closely. MMODL / IJN: [id number] /
[2021-05-08 06:10] LABS: Glucose,Whole Blood 225 mg/dL (75-99)
[2021-05-08] MEDS: INSULIN ASPART (NovoLOG) 100 UNIT/ML VIAL SQ SCH ×3 (06:25→13:53)
[2021-05-08 07:41] LABS: Basophils # (A) 0.1 k/uL (0-0.2); Basophils % (A) 1 %; Eosinophils # (A) 0.3 k/uL (0-0.7); Eosinophils % (A) 4 %; HCT 42.7 % (39.0-53.0); HGB 13.9 gm/dL (13.0-17.5); Lymphocytes # (A) 2.1 k/uL (1.0-4.8); Lymphocytes % (A) 29 %; MCH 30.5 pg (25.0-35.0); MCHC 32.5 g/dL (31.0-37.0); Mean Platelet Volume 7.6; Monocytes # (A) 0.4 k/uL (0-1.0); Monocytes % (A) 5 %; Neutrophils # (A) 4.3 k/uL (1.3-7.7); Neutrophils % (A) 59 %; Platelet Count 136 k/uL (150-450); RBC 4.55 m/uL (4.30-5.90); RDW 14.1 % (11.5-15.5); WBC 7.2 k/uL (3.8-10.6)
[2021-05-08 07:58] LABS: African American GFR (CKD) >90 (>60 ml/min/1.73 sqM); Anion Gap 2 mmol/L; Blood Urea Nitrogen 16 mg/dL (9-20); Calcium 8.7 mg/dL (8.4-10.2); Carbon Dioxide 27 mmol/L (22-30); Chloride 105 mmol/L (98-107); Glucose 251 mg/dL (74-99); Non-African American GFR(CKD) >90 (>60 ml/min/1.73 sqM); Potassium 4.5 mmol/L (3.5-5.1); Sodium 134 mmol/L (137-145)
[2021-05-08] MEDS ORDERED: VANCOMYCIN TROUGH DUE 1 EACH MISC MISCELLANE ONE (08:00)
[2021-05-08] MEDS: ENOXAPARIN 40 MG/0.4 ML SYRINGE SQ SCH ×2 (08:18→08:33)
[2021-05-08] MEDS: FAMOTIDINE 20 MG TAB PO SCH (08:18)
[2021-05-08] MEDS: INSULIN DETEMIR (LEVEMIR) 100 UNIT/ML SYR SQ SCH (08:18)
[2021-05-08] MEDS: glipiZIDE 10 MG TAB PO SCH (08:19)
[2021-05-08] MEDS: LINAGLIPTIN 5 MG TABLET PO SCH (08:19)
[2021-05-08] MEDS: VANCOMYCIN 2,000 MG in SODIUM CHLORIDE 0.9% 500 ML 500 ML IVPB SCH (09:00)
[2021-05-08 13:15] LABS: Glucose,Whole Blood 186 mg/dL (75-99)
[2021-05-08] MEDS: IBUPROFEN 400 MG TAB PO PRN (13:24)
[2021-05-08 14:28] VITALS: BP 167/84; PULSE 73; RESP 18; TEMP 98.3
--- NOTE | 2021-05-08 15:28 | PN ---
PROGRESS NOTE DATE OF SERVICE: 05/08/2021 REASON FOR FOLLOWUP: 1. Positive blood culture. 2. Right foot cellulitis. INTERVAL HISTORY: The patient is afebrile. The patient is feeling better, breathing comfortably. No chest pain, shortness of breath or cough. No abdominal pain or any worsening pain to the right foot area. PHYSICAL EXAMINATION: Blood pressure 163/84 with a pulse of 73, temperature 98.3. He is 98% on room air. General description is a middle-aged male lying in bed in no distress. Respiratory system: Unlabored breathing, clear to auscultation anteriorly. Heart S1, S2. Regular rate and rhythm. Abdomen soft, no tenderness. Right foot lateral border did have some bruising but no definite swelling, redness or any drainage. LABS: Hemoglobin is 13.1, white count 10.2, creatinine 0.87. Vancomycin trough is 16.6. Blood culture finalized with micrococcus species. DIAGNOSTIC IMPRESSION AND PLAN: 1. Patient with positive blood culture likely contaminant. Repeat blood culture negative. Vancomycin discontinued. 2. Patient with right foot cellulitis, lateral border; having some bruising. No fever, no white count. May consider a short course of oral doxycycline on discharge with close outpatient followup in the [facility]. MMODL / IJN: [id number] /
--- NOTE | 2021-05-09 08:33 | CDI ---
Documentation Clarification Form Date: 05/08/2021 03:03:00 PM From: Tosha Obando RN CCDS Admit Date: 05/07/2021 07:47:00 AM Patient Name: Aniceto Askew Visit Number: [id number] Discharge Date: 05/08/2021 04:15:00 PM ATTENTION: The Clinical Documentation Specialists (CDI) and [facility] Coding Staff appreciate your assistance in clarifying documentation. Please respond to the clarification below the line at the bottom and electronically sign. The CDI & [facility] Coding staff will review the response and follow-up if needed. Please note: Queries are made part of the Legal Health Record. If you have any questions, please contact the author of this message via ITS. Dr. Klaus Ramos There is documentation of bacteremia 05/07, Medicine progress note. Bacteremia is considered a lab finding. Additional clarification regarding bacteremia is requested. Patient history/risk factors: 60-year-old male presents to the ED with swelling and discoloration in the aspect of the great toe. Clinical Indicators: WBC: 05/05 8.7 Left Shift: 05/05 5.6 Blood Culture: 05/05 Gram positive cocci in clusters ID Consult: Progress note 05/08 Patient with positive blood culture ____ likely contaminant. Repeat blood culture negative. Treatment: 05/05 0.9NS 1L bolus. Antibiotics: 05/05 Vancomycin 2,500mg IVPB x 1, 05/06 to 05/08 Vancomycin 2,000mg IVPB Q12HRS. Please provide additional clarification regarding the etiology/cause and/or clinical significance of the bacteremia: [ ] Bacteremia ruled out [ ] Bacteremia is related to sepsis [ ] Bacteremia is due to infectious process, please specify: [ ] Other, please specify [ ] Unable to determine Documented in the DCS - -Bacteremia with blood cultures from 05/05/2021 finalized showing micrococci species which is a contaminant and repeat blood cultures are negative, no sepsis (Template Last Revised: July 2020) MTDD
--- NOTE | 2021-05-09 10:24 | P.DS ---
Providers Date of admission: 05/07/21 07:47 Expected date of discharge: 05/08/21 Attending physician: Ed Saldana Consults: 05/05/21 20:03 Consult Physician Urgent Consulting Provider: Suleiman Nieves Consult Reason/Comments: Diabetic foot infection, cellulitis. Do you want consulting provider notified?: Yes, Notify in am 05/06/21 11:17 Consult Physician Routine Consulting Provider: Eran Johnson Consult Reason/Comments: Cellulitis Do you want consulting provider notified?: Yes Primary care physician: Soha Linn MD Hospital Course: Final diagnosis -Right foot pain with evidence of traumatic injury and a severe diabetic neuropathy, patient appears to have Charcot foot -Right foot cellulitis, ruled out -Patient had history of MRSA in the past -Bacteremia with blood cultures from 05/05/2021 finalized showing micrococci species which is a contaminant and repeat blood cultures are negative, no sepsis -Type 2 diabetes mellitus uncontrolled elevated blood sugars, oral diabetic medications have been resumed and will continue sliding scale and Accu-Cheks before meals and at bedtime -Severe diabetic neuropathy -Hypertension -Coronary artery disease -DVT prophylaxis: Lovenox -GI prophylaxis: Pepcid -Full code Discharge disposition Patient is being discharged in a stable condition with guarded prognosis to home. Patient will follow-up with Dr. Soha Linn in the outpatient setting upon discharge. Patient is to also follow-up at the wound center as scheduled. Patient will continue on a short course of oral antibiotics in the form of doxycycline 100 mg twice daily for the next 1 week. Total time taken is greater than 35 minutes. Hospital course Patient is a 60-year-old male who was recently admitted with some swelling and discoloration of the right foot and was concerned for possible infection or cellulitis and was being closely monitored. Infectious disease along with vascular surgery Dr. Nieves following closely. Patient was also found to have positive blood cultures which were most likely contaminant and repeat blood cultures have been negative. Cultures came back as micrococcus species and discussed with microbiology out of [place] who states this was a contaminant. Patient will continue with local wound care and will follow-up at the wound care center in the outpatient setting on discharge. Patient's white blood count was within normal limits and patient remained afebrile. Patient was maintained on IV vancomycin during hospitalization. Instructed the patient to continue monitoring blood sugars closely and keep a diary for primary care follow-up and continue with current medication regimen. Recommend tight glycemic control and diet modifications and continue with consistent carb heart healthy diet. Currently no reports of chest pain, shortness of breath, or palpitations. Patient is afebrile. No reports of nausea or vomiting and patient is tolerating diet. Patient will be discharged home today. PHYSICAL EXAMINATION: GENERAL: The patient is alert and oriented x3, not in any acute distress. Well developed, well nourished. HEENT: Pupils are round and equally reacting to light. EOMI. No scleral icterus. No conjunctival pallor. Normocephalic, atraumatic. No pharyngeal erythema. No thyromegaly. CARDIOVASCULAR: S1 and S2 present. No murmurs, rubs, or gallops. PULMONARY: Chest is clear to auscultation, no wheezing or crackles. ABDOMEN: Soft, nontender, nondistended, normoactive bowel sounds. No palpable organomegaly. MUSCULOSKELETAL: No joint swelling or deformity. EXTREMITIES: No cyanosis, clubbing, or pedal edema. NEUROLOGICAL: Gross neurological examination did not reveal any focal deficits. SKIN: As mentioned in the history Please refer to medication reconciliation sheet for a list of medications. Patient Condition at Discharge: Stable Plan - Discharge Summary New Discharge Prescriptions: New Ibuprofen [Motrin] 400 mg PO Q6HR PRN #30 tab PRN Reason: Mild Pain Or Fever > 100.5 Doxycycline [Vibramycin] 100 mg PO BID 7 Days #14 capsule glipiZIDE [Glucotrol] 10 mg PO AC-BID@0800,1800 30 Days #60 tab Continue sitaGLIPtin [Januvia] 100 mg PO DAILY Insulin Glargine,Hum.rec.anlog [Basaglar Kwikpen U-100] 10 unit SQ HS Insulin Aspart [NovoLOG Flexpen] 9 units SQ BID@1200,1700 Insulin Glargine,Hum.rec.anlog [Basaglar Kwikpen U-100] 52 unit SQ DAILY Discontinued glyBURIDE [Diabeta] 5 mg PO AC-BID@0800,1800 Discharge Medication List sitaGLIPtin [Januvia] 100 mg PO DAILY 07/23/20 [History] Insulin Aspart [NovoLOG Flexpen] 9 units SQ BID@1200,1700 05/05/21 [History] Insulin Glargine,Hum.rec.anlog [Basaglar Kwikpen U-100] 10 unit SQ HS 05/05/21 [History] Insulin Glargine,Hum.rec.anlog [Basaglar Kwikpen U-100] 52 unit SQ DAILY 05/05/21 [History] Doxycycline [Vibramycin] 100 mg PO BID 7 Days #14 capsule 05/08/21 [Rx] Ibuprofen [Motrin] 400 mg PO Q6HR PRN #30 tab 05/08/21 [Rx] glipiZIDE [Glucotrol] 10 mg PO AC-BID@0800,1800 30 Days #60 tab 05/08/21 [Rx] Follow up Appointment(s)/Referral(s): Soha Linn MD [Primary Care Provider] - 05/10/21 10:30 am [facility] [NON-STAFF] - 05/13/21 3:15 pm () Activity/Diet/Wound Care/Special Instructions: discharge pending clearance from Dr. Nieves Activity limited until follow up follow up with wound center outpatient continue antibiotics until finished continue consistent carb diet monitor blood sugars and keep a diary for primary care follow up follow up with primary care provider on discharge Discharge Disposition: HOME SELF-CARE
== END 2021-05-08 16:15 | disposition home or self-care (01) | DRG 74 ==
LOC: EC 17:36 → 6NMEDSUR 20:02 → 6PED 22:42 → OBSVTOIN 05-07 07:47
PROVIDERS: ADMIT Hospitalist; ATTEND Hospitalist
DX: E11.610 Type 2 diabetes mellitus with diabetic neuropathic arthropathy (principal); H35.61 Retinal hemorrhage, right eye; E11.51 Type 2 diabetes mellitus with diabetic peripheral angiopathy without gangrene; E11.65 Type 2 diabetes mellitus with hyperglycemia; E11.42 Type 2 diabetes mellitus with diabetic polyneuropathy; E11.319 Type 2 diabetes mellitus with unspecified diabetic retinopathy without macular edema; Z79.4 Long term (current) use of insulin; Z20.822 Contact with and (suspected) exposure to COVID-19; I10 Essential (primary) hypertension; G47.33 Obstructive sleep apnea (adult) (pediatric); K57.90 Diverticulosis of intestine, part unspecified, without perforation or abscess without bleeding; I25.10 Atherosclerotic heart disease of native coronary artery without angina pectoris; E03.9 Hypothyroidism, unspecified; I25.2 Old myocardial infarction; M77.31 Calcaneal spur, right foot; L84 Corns and callosities; H52.203 Unspecified astigmatism, bilateral; M54.9 Dorsalgia, unspecified; R21 Rash and other nonspecific skin eruption; Z79.84 Long term (current) use of oral hypoglycemic drugs; Z86.018 Personal history of other benign neoplasm; Z86.14 Personal history of Methicillin resistant Staphylococcus aureus infection; Z91.81 History of falling; Z88.6 Allergy status to analgesic agent; Z88.0 Allergy status to penicillin; Z86.31 Personal history of diabetic foot ulcer; Z98.890 Other specified postprocedural states; Z87.891 Personal history of nicotine dependence; Z83.3 Family history of diabetes mellitus; Z82.49 Family history of ischemic heart disease and other diseases of the circulatory system; Z84.1 Family history of disorders of kidney and ureter
CPT/HCPCS: 36415; 80048; 80053; 80202; 83605; 83735; 85025; 87040; 87635; 99284

== ENCOUNTER → 2021-12-30 | Outpatient (CLI) | payer BC ==
[2021-12-30 17:57] LABS: BUN/Creat Ratio 21.17 Ratio (12.00-20.00)
[2021-12-30 17:58] LABS: ALT 26 U/L (10-49); AST 29 U/L (14-35); African American GFR (CKD) 83.8 (60.0-200.0); Albumin 3.8 g/dL (3.8-4.9); Albumin/Globulin Ratio 0.99 (1.60-3.17); Alkaline Phosphatase 70 U/L (41-126); Blood Urea Nitrogen 23.5 mg/dL (9.0-27.0); Calcium 9.5 mg/dL (8.7-10.3); Carbon Dioxide 25.9 mmol/L (20.0-27.5); Chloride 103 mmol/L (96-109); Chol/HDL Ratio 5.33 Ratio; Globulin 3.8 g/dL (1.6-3.3); Glucose 192 mg/dL (70-110); LDL Cholesterol,Calculated 132.4 mg/dL (0.0-131.0); Non-African American GFR(CKD) 72.3 (60.0-200.0); Sodium 138 mmol/L (135-145); Total Protein 7.5 g/dL (6.2-8.2)
[2021-12-30 23:52] LABS: Microalbumin Creatinine Ratio <30 mg/g Creat (0-30); Urine Creatinine 62.4 mg/dL (39.0-259.0)
== END | disposition home or self-care (01) ==
LOC: LABWHC1 12:51
PROVIDERS: ATTEND Internal Medicine Endocrinology, Diabetes & Metabolism
DX: E11.65 Type 2 diabetes mellitus with hyperglycemia (principal)
CPT/HCPCS: 36415; 80053; 80061; 82043; 82570; 83036; 84443

== ENCOUNTER → 2022-05-14 | Outpatient (CLI) | payer BC ==
[2022-05-14 14:49] LABS: Chol/HDL Ratio 4.11 Ratio; LDL Cholesterol,Calculated 96.9 mg/dL (0.0-131.0)
[2022-05-15 00:02] LABS: Urine Creatinine 82.5 mg/dL (39.0-259.0)
[2022-05-15 01:12] LABS: ALT 41 U/L (10-49); AST 32 U/L (14-35); African American GFR (CKD) 87.6 (60.0-200.0); Albumin 4.1 g/dL (3.8-4.9); Alkaline Phosphatase 72 U/L (41-126); BUN/Creat Ratio 16.82 Ratio (12.00-20.00); Calcium 9.6 mg/dL (8.7-10.3); Carbon Dioxide 27.9 mmol/L (20.0-27.5); Chloride 107 mmol/L (96-109); Globulin 3.1 g/dL (1.6-3.3); Glucose 168 mg/dL (70-110); Non-African American GFR(CKD) 75.6 (60.0-200.0); Potassium 5.5 mmol/L (3.5-5.5); Sodium 142 mmol/L (135-145); Total Protein 7.2 g/dL (6.2-8.2)
== END | disposition home or self-care (01) ==
LOC: LABWHC1 10:08
PROVIDERS: ATTEND Internal Medicine Endocrinology, Diabetes & Metabolism
DX: E11.42 Type 2 diabetes mellitus with diabetic polyneuropathy (principal)
CPT/HCPCS: 36415; 80053; 80061; 82043; 82570; 83036; 84443

== ENCOUNTER → 2023-04-06 | Outpatient (CLI) | payer BC ==
[2023-04-06 12:49] LABS: Urine Creatinine 60.4 mg/dL (39.0-259.0)
[2023-04-06 12:54] LABS: Blood Urea Nitrogen 19.9 mg/dL (9.0-27.0); Chol/HDL Ratio 3.93 Ratio; Glucose 183 mg/dL (70-110); LDL Cholesterol,Calculated 76.5 mg/dL (0.0-131.0)
[2023-04-06 12:55] LABS: ALT 52 U/L (10-49); AST 35 U/L (14-35); Albumin 3.9 d/dL (3.8-4.9); Albumin/Globulin Ratio 1.26 Ratio (1.60-3.17); Alkaline Phosphatase 78 U/L (41-126); Calcium 9.9 mg/dL (8.7-10.3); Carbon Dioxide 26.9 mmol/L (21.6-31.8); Chloride 102 mmol/L (96-109); Globulin 3.1 d/dL (1.6-3.3); Potassium 5.2 mmol/L (3.5-5.5); Sodium 140 mmol/L (135-145); Total Bilirubin 0.4 mg/dL (0.3-1.2)
== END | disposition home or self-care (01) ==
LOC: LABWHC1 07:33
PROVIDERS: ATTEND Internal Medicine Endocrinology, Diabetes & Metabolism
DX: E11.65 Type 2 diabetes mellitus with hyperglycemia (principal)
CPT/HCPCS: 36415; 80053; 80061; 82043; 82570; 83036; 84443

== ENCOUNTER → 2023-07-06 | Outpatient (CLI) | payer BC ==
[2023-07-06 15:48] LABS: ALT 45 U/L (10-49); AST 29 U/L (14-35); Albumin/Globulin Ratio 1.33 Ratio (1.60-3.17); Alkaline Phosphatase 70 U/L (41-126); Blood Urea Nitrogen 23.1 mg/dL (9.0-27.0); Calcium 9.4 mg/dL (8.7-10.3); Carbon Dioxide 24.7 mmol/L (21.6-31.8); Chloride 101 mmol/L (96-109); Chol/HDL Ratio 4.19 Ratio; Glucose 253 mg/dL (70-110); LDL Cholesterol,Calculated 82.5 mg/dL (0.0-131.0); Potassium 4.7 mmol/L (3.5-5.5); Sodium 136 mmol/L (135-145); Total Bilirubin 0.3 mg/dL (0.3-1.2)
[2023-07-06 21:01] LABS: Urine Creatinine 44.3 mg/dL (39.0-259.0)
== END | disposition home or self-care (01) ==
LOC: LABWHC1 10:00
PROVIDERS: ATTEND Internal Medicine Endocrinology, Diabetes & Metabolism
DX: E11.65 Type 2 diabetes mellitus with hyperglycemia (principal)
CPT/HCPCS: 36415; 80053; 80061; 82043; 82570; 83036; 84443